=== PATIENT | female | born 1970 | race Caucasian/White ===

== ENCOUNTER → 2017-12-19 08:14 | Outpatient (CLI) | payer BC, SELFPAY ==
--- NOTE | 2017-12-19 08:30 | US_ITS ---
US transvaginal HISTORY: ITS.REASON: RLQ PAIN ORDERING PHYSICIAN: Delfino Bravo MD PATIENT AGE: 47 years FINDINGS: The uterus is 10 x 5 x 6 cm with a combined endometrial thickness of 14 mm. Uterus is retroverted. There is a 4.8 x 3.4 by 2.7 cm area of decreased echogenicity along the uterine fundus consistent with a fibroid. An additional fibroid along the right aspect of the uterus measures 4.9 x 3.4 x 3.7 cm. The right ovary is 2.5 x 1.4 cm and the left ovary is 3 x 2.6 cm. No adnexal mass evident. No cul-de-sac fluid. IMPRESSION: 1. Thickened endometrium. 2. 2 uterine fibroids
--- NOTE | 2017-12-19 08:30 | US_ITS ---
US abdomen limited: HISTORY: Right-sided abdominal pain, loss of appetite with nausea and bloating. ITS.REASON: RUQ PAIN ORDERING PHYSICIAN: Delfino Bravo MD PATIENT AGE: 47 years COMPARISON: FINDINGS: PANCREAS: Unremarkable. No obvious mass or abnormal fluid collection. No ductal dilatation LIVER: No focal liver lesions demonstrated. Homogeneous echogenicity. No intrahepatic biliary ductal dilatation evident. There is increased echogenicity of the liver suggesting hepatic steatosis RIGHT KIDNEY: Unremarkable. Normal size and echogenicity. No hydronephrosis GALLBLADDER: No gallstones, gallbladder wall thickening, pericholecystic fluid, or biliary dilatation. IMPRESSION: 1. Fatty liver. 2. Otherwise negative right upper quadrant ultrasound
== END ==
PROVIDERS: PCP Family Medicine; Visit Provider Family Medicine
DX: R10.31 Right lower quadrant pain (principal); R10.11 Right upper quadrant pain
CPT/HCPCS: 76705; 76830

== ENCOUNTER → 2018-01-01 10:10 | Outpatient (CLI) | payer BC, SELFPAY ==
--- NOTE | 2018-01-01 10:14 | NM_ITS ---
NM hepatobiliary wo pharm HISTORY: ITS.REASON: RUQ PAIN ORDERING PHYSICIAN: Delfino Bravo MD PATIENT AGE: 47 years COMPARISON: None DOSE: 8.64 MCI Choletec Inj into RT ANT Fatty Meal Ensure FINDINGS: Decreased activity is present over the superior aspect of the liver likely due to chest wall attenuation on both the right and left Activity is present in the gallbladder by 50 minutes. Activity is present in the small bowel by 15 minutes. The gallbladder ejection fraction is calculated to be 92% The patient did not report pain or other symptoms during the fatty meal. IMPRESSION: 1. No evidence of common or cystic duct obstruction. 2. There is mild delay in visualization of the gallbladder seen x 50 m which may be seen with chronic inflammatory changes of the cystic duct. 3. Normal gallbladder ejection fraction
== END ==
PROVIDERS: PCP Family Medicine; Visit Provider Family Medicine
DX: R10.11 Right upper quadrant pain (principal)
CPT/HCPCS: 78226; A9537

== ENCOUNTER → 2018-02-04 13:39 | Outpatient (POV) | payer BC, SELFPAY ==
[2018-02-04 14:58] LABS: INR 1.06 (0.9-1.1); Prothrombin Time 10.9 seconds (9.4-11.8)
[2018-02-04 15:02] LABS: Basophils % 0.5 % (0.1-2.0); Eosinophils # 0.2 K/mm3 (0.0-0.4); Eosinophils % 2.3 % (0.1-12.0); Lymphocytes # 1.6 K/mm3 (0.7-4.5); Lymphocytes % 19.1 K/mm3 (10-50); Mean Corpuscular HGB Conc 29.9 g/dL (31.8-35.4); Mean Corpuscular Hemoglobin 26.7 pg (27.0-31.2); Mean Corpuscular Volume 89.4 fl (81-99); Mean Platelet Volume 10.4 fl (7.4-10.4); Monocytes # 0.7 K/mm3 (0.1-1.0); Monocytes % 8.8 % (1.7-9.3); Neutrophils # 5.7 K/mm3 (1.8-7.8); Neutrophils % 69.2 % (37.0-80.0); Red Blood Count 4.48 M/mm3 (4.20-5.40); Red Cell Distribution Width 16.9 % (11.5-17.5); White Blood Count 8.3 K/mm3 (4.8-10.8)
[2018-02-04 15:34] LABS: Platelet Count 31 K/mm3 (142-424)
[2018-02-04 18:48] LABS: Alanine Aminotransferase 59 U/L (12-78); Albumin Level 3.2 gm/dL (3.4-5.0); Albumin/Globulin Ratio 0.8 (1.1-1.8); Alkaline Phosphatase 128 U/L (46-116); Amylase 46 U/L (25-125); Anion Gap 14.1 mEq/L (5-15); Aspartate Amino Transferase 106 U/L (15-37); Bilirubin,Total 0.4 mg/dL (0.2-1.0); Blood Urea Nitrogen 7 mg/dL (7-18); Calcium 7.7 mg/dL (8.5-10.1); Carbon Dioxide 25 mmol/L (21.0-32.0); Chloride 105 mmol/L (98-107); Creatinine,Serum 0.55 mg/dL (0.55-1.02); Estimated Glomerular Filt Rate 118 ml/min (>60); Ferritin 29 ng/mL (8-388); GFR (African American) 143 ML/MIN (>60); Globulin 4.2 gm/dl (1.3-3.2); Glucose 123 mg/dL (74-106); Lipase 262 u/L (73-393); Potassium 4.1 mmoL/L (3.5-5.1); Sodium 140 mmol/L (136-145); Total Protein,Serum 7.4 gm/dL (6.4-8.2)
[2018-02-06 09:22] LABS: Iron 32 ug/dL (27-159); UIBC 414 ug/dL (131-425)
[2018-02-06 10:14] LABS: Alpha-1-Antitrypsin 180 mg/dL (90-200); Immunoglobulin A, Qn 477 mg/dL (87-352); Immunoglobulin G, Qn 1460 mg/dL (700-1600)
[2018-02-06 11:18] LABS: Hep A Ab, IgM Negative (Negative); Hep B Core Ab, Total Negative (Negative); Hepatitis B Core Antibody IgM Negative (Negative); Hepatitis B Surface Antigen Negative (Negative)
[2018-02-07 08:03] LABS: Actin (Smooth Muscle) Antibody 21 Units (0-19); Angiotensin Converting Enzyme 59 U/L (14-82); Antinuclear Antibodies, IFA Positive (.); Deamidated Gliadin Abs, IgA 45 units (0-19); Deamidated Gliadin Abs, IgG >150 units (0-19); Endomysial IgA Antibody Positive (Negative); Hep A Ab, Total Negative (Negative); Hep B Surface Ab, Qual Non Reactive (.); Hepatitis C Antibody <0.1 s/co ratio (0.0-0.9); Immunoglobulin M, Qn 97 mg/dL (26-217); Iron Saturation 7 % (15-55); Liver-Kidney Microsomal Ab 1.4 Units (0.0-20.0); Mitochondrial (M2) Antibody <20.0 Units (0.0-20.0); Tissue Transglutaminase IgA Ab >100 U/mL (0-3); Tissue Transglutaminase IgG Ab 69 U/mL (0-5)
[2018-02-08 13:14] LABS: ALT (SGPT) P5P 50 IU/L (0-40); Alpha 2-Macroglobulins, Qn 328 mg/dL (110-276); Apolipoprotein A-1 79 mg/dL (116-209); Bilirubin, Total 0.3 mg/dL (0.0-1.2); Fibrosis Score 0.67 (0.00-0.21); GGT 231 IU/L (0-60); Haptoglobin 119 mg/dL (34-200); Necroinflammat Activity Grade A1-A2 (.); Necroinflammat Activity Score 0.42 (0.00-0.17)
[2018-02-08 15:36] LABS: Reticulin IgA Antibody Negative titer (Neg:<1:2.5)
== END ==
PROVIDERS: PCP Family Medicine; Visit Provider Nurse Practitioner Acute Care
DX: R94.5 Abnormal results of liver function studies (principal)
CPT/HCPCS: 36415; 80053; 80074; 82103; 82104; 82150; 82164; 82728; 82784; 83516; 83540; 83550; 83690; 85025; 85610; 86038; 86255; 86256; 86376; 86704; 86706; 86708

== ENCOUNTER 2018-09-16 13:06 | Observation (INO) ==
--- NOTE | 2018-09-16 14:33 | History & Physical Report ---
*Admission Date: 09/16/18 <Megan Rodney - 09/16/18 14:33> *Chief complaint: Shortness of breath <Megan Rodney - 09/16/18 15:16> *History of present illness: Ms Ac is a 48 year old female with a history of celiac disease, gastritis, duodenitis, uterine fibroids, abnormal liver, and thrombocytopenia who presented to the office of A complaining of SOB at rest with worsening with any activity. She has been experiencing heavy menses with large clots since August 27, 2018. She was seen by her CRISIS WORKER MD, Dr. Canales, who performed a Pap smear. He started her on control pills. When her periods continue to be heavy and were worsening she contacted Dr. Canales who told her to take 3 of her control pills daily. After doing so she noted shortness of breath for the past [address] Parker moreira who instructed her to stop the control pills and to see her primary care physician. Thus she presented to our office for further evaluation. She reported some intermittent left upper chest discomfort but denied pain on deep inspiration. She became short of breath just with walking across the t[place] to the bathroom. She denied palpitations and leg edema. She also reported a periodic cough and thought she may have a fever. Shedid not have much of an appetite but denied nausea or vomiting. She just felt bloated she had a normal bowel movement today without any blood. Patient is known to have a low platelet count as low as 17,000. She has seen Dr. Malagon, distillery miller, who did not feel further investigation was needed unless her platelet count became less than 10,000. She is also been seen by Dr. Dougherty who performed an EGD and colonoscopy on 05/06/2018. He found evidence of celiac disease, dyspepsia, gastritis, duodenitis , and one polyp which he removed. She did have a transvaginal ultrasound in December 2017 which showed 2 large fibroids and a thickened endometrium. With exam in the office patient was noted to be short of breath after going to bathroom across the tadeo. CBC revealed a hemoglobin of 7.2 and hematocrit of 23.3, platelet count of 65,000, white blood cell count of 11,100. Case was discussed with Dr. Sharma and she was admitted to [facility] for further evaluation and treatment. She will have a CTA of the chest, labs, venous ultrasound of bilateral lower extremities, and transvaginal ultrasound. She will be given 2 units of packed red blood cells. <Mercedes Rodneyhy 09/16/18 15:16> [facility] History Medical History: Reports:: Gastroesophageal Reflux Disease(GERD) Denies:: Atherosclerotic Heart Disease, Cancer, Coronary Artery Disease, Diabetes Mellitus Type 1, Diabetes Mellitus Type 2, Hepatitis, Hyperlipidemia, Internal Pacemaker, Lung Disease, MRSA, Seizures <Rodney,Megan 09/16/18 15:16> Have you ever received a pneumonia vaccine?: No <Megan Rodney 09/16/18 14:33> Have you received a flu vaccine this season?: No <Megan Rodney 09/16/18 14:33> Other Medical History: Reports: Anemia, Arthritis. Denies: Hypothyroidism <Megan Rodney 09/16/18 15:16> Laterality Cases: Bilateral: Tonsillectomy (T&A) <Megan Rodney 09/16/18 15:16> Other Surgeries: Yes: . No: Pacemaker <RodneyMegan escobar 09/16/18 14:33> Amputation: No <Megan Rodney 09/16/18 14:33> Fractures: No <Megan Rodney 09/16/18 14:33> - *Social History Educational Level: Completed High School <Megan Rodney 09/16/18 14:33> Smoking Status: Former smoker <Megan Rodney 09/16/18 14:33> Alcohol Intake: never <Megan Rodney 09/16/18 14:33> Alcohol Intake Frequency:: 3 or more drinks per day <Megan Rodney 09/16/18 14:33> Occupational Status: employed <Megan Rodney 09/16/18 14:33> Housing: house <Megan Rodney 09/16/18 14:33> Household Members: spouse <Megan Rodney 09/16/18 14:33> Travel in the last 8 weeks: None <Megan Rodney 09/16/18 14:33> - Psychiatric History Expresses thoughts of harming self/others: None <Megan Rodney 09/16/18 14:33> Suicide Plan Description: No Plan <Rodney,[facility] 09/16/18 14:33> *Family Hx:: Diabetes, Heart Attack, Hyperlipidemia, Hypertension <[facility] 14:[facility]> Review of Systems - Constitutional Reports body ache(s), Reports fever(s), Reports headache(s), Reports lack of energy <Rodney,[facility] 09/16/18 15:16> - ENT Reports ear pain, Reports sore throat <[facility] 09/16/18 15:16> - *Cardiovascular Reports chest pain, Reports shortness of breath, Reports shortness of breath with activity, Reports lightheadedness, Denies foot swelling <[facility] 09/16/18 15:16> - *Respiratory Reports shortness of breath with activity, Reports pain with cough, Denies excessive phlegm production, Denies coughing up blood <[facility] 09/16/18 15:16> - *Gastrointestinal Reports belching, Reports bloating, Reports nausea, Denies abdominal pain, Denies change in bowel habits, Denies constipation, Denies loose stools, Denies vomiting blood, Denies bright, red blood in stools, Denies black, tarry stools, Denies vomiting <[facility] 09/16/18 15:16> - *Genitourinary Reports abnormal periods, Reports abnormal vaginal bleeding, Denies difficulty urinating, Denies blood in urine [facility]16[facility] - *Musculoskeletal Reports joint pain <[facility] 09/16/18 15:16> - *Neurologic Denies behavioral changes <[facility]/16[facility]16> - Psychiatric Reports behavioral changes <[facility]/16[facility] 15:16> Meds Home Medications Medication Instructions Recorded Confirmed Type Bifidobacterium Infantis [Align] 4 mg PO DAILY 04/29/18 09/16/18 History Calcium Polycarbophil [FiberCon 625 mg PO BID 04/29/18 09/16/18 History 625mg tablet] Cholecalciferol (Vitamin D3) [D3 2,000 unit PO DAILY 04/29/18 09/16/18 History Dots] Multivitamin [Multivitamins] 1 each PO DAILY 04/29/18 09/16/18 History Omeprazole [Omeprazole 20mg Tab] 20 mg PO DAILY 09/16/18 09/16/18 History <Ashish Sharma - 09/16/18 17:48> Allergies Allergy/AdvReac Type Severity Reaction Status Date / Time No Known Allergies Allergy Verified 06/27/18 15:16 <Ashish Sharma - 09/16/18 17:48> Exam Vital signs and Labs for Last 24 Hours: Temp Pulse Resp BP Pulse Ox 99.3 F 98 H 16 114/71 100 09/16/18 17:30 09/16/18 17:30 09/16/18 17:30 09/16/18 17:30 09/16/18 17:30 Laboratory Results - last 24 hr 09/16/18 14:20: WBC 10.2, RBC 2.53 L, Hgb 6.7 L*, Hct 22.0 L*, MCV 86.7, MCH 26.3 L, MCHC 30.4 L, RDW 18.9 H, Plt Count 86 L, MPV 10.0, Neut % (Auto) 68.0, Lymph % (Auto) 23.1, [place] % (Auto) 6.9, Eos % (Auto) 1.5, Baso % (Auto) 0.5, Neut # (Auto) 7.0, Lymph # (Auto) 2.4, [place] # (Auto) 0.7, Eos # (Auto) 0.2, Baso # (Auto) 0.1 09/16/18 14:20: Sodium 138, Potassium 3.8, Chloride 103, Carbon Dioxide 24, Anion Gap 14.8, BUN 8, Creatinine 0.69, Estimated Creat Clear 99, Estimated GFR 91, Est GFR ( Amer) 110, Glucose 105, Calcium 8.3 L, Total Bilirubin 0.3, AST 18, ALT 25, Alkaline Phosphatase 65, Total Protein 7.3, Albumin 3.1 L, Globulin 4.2 H, Albumin/Globulin Ratio 0.7 L, TSH 4.96 H 09/16/18 14:20: PT 9.8, INR 0.95, APTT 21.2 L, D-Dimer 215 09/16/18 14:20: Blood Type A Positive, Antibody Screen Negative, Crossmatch (G) See Detail 09/16/18 16:10: Blood Type Confirm A Positive <Ashish Sharma - 09/16/18 17:48> Temp Pulse Resp BP Pulse Ox 98.1 F 108 H 18 131/79 100 09/16/18 13:33 09/16/18 13:33 09/16/18 13:33 09/16/18 13:33 09/16/18 13:33 <Megan Rodney - 09/16/18 14:33> I & O for Last 24 hours: Intake & Output 09/14/18 09/15/18 09/16/18 09/17/18 11:59 11:59 11:59 11:59 Intake Total 0 / 0 Balance 0 / 0 Weight 138 lb <Ashish Sharma - 09/16/18 17:48> Intake & Output 09/14/18 09/15/18 09/16/18 09/17/18 11:59 11:59 11:59 11:59 Weight 138 lb <Megan Rodney 09/16/18 14:33> - Constitutional no acute distress <Megan Rodney 09/16/18 15:16> Comments: She appears not to feel well <Megan Rodney 09/16/18 15:16> - *Routine HEENT Exam Head: Present: normocephalic, atraumatic <Megan Rodney 09/16/18 15:16> Eye: Present: PERRL. Absent: conjunctival icterus, scleral injection <Megan Rodney 09/16/18 15:16> ENT: Present: mucous membranes moist, oropharynx clear <Megan Rodney 09/16/18 15:16> - *Routine Neck Exam Present: supple. Absent: carotid bruit, lymphadenopathy, thyromegaly <Megan Rodney 09/16/18 15:16> - *Routine Respiratory Exam Present: CTA bilaterally (Anteriorly and posteriorly) <Megan Rodney 09/16/18 15:16> - *Routine Cardiovascular Exam Present: RRR. Absent: murmur <Megan Rodney 09/16/18 15:16> - *Routine Abdominal Exam Present: soft, normoactive bowel sounds, tenderness (Diffusely and mildly), distended. Absent: organomegaly, mass <Megan Rodney 09/16/18 15:16> - *Routine Extremities Exam Absent: edema, full ROM, calf tenderness <Megan Rodney 09/16/18 15:16> - *Routine Neurological Exam Present: alert, oriented X3 <Megan Rodney 09/16/18 15:16> Assessment and Plan (1) Shortness of breath Current visit: Yes Status: Acute Category: Medical Code(s): R06.02 - Shortness of breath (2) Chest pain Current visit: Yes Status: Acute Category: Medical Code(s): R07.9 - Chest pain, unspecified (3) Menorrhagia Current visit: Yes Status: Acute Category: Medical Code(s): N92.0 - Excessive and frequent menstruation with regular cycle (4) Blood loss anemia Current visit: Yes Status: Acute Category: Medical Code(s): D50.0 - Iron deficiency anemia secondary to blood loss (chronic) (5) Thrombocytopenia Current visit: Yes Status: Chronic Category: Medical Code(s): D69.6 - Thrombocytopenia, unspecified (6) Celiac disease Current visit: Yes Status: Chronic Category: Medical Code(s): K90.0 - Celiac disease (7) Gastritis Current visit: Yes Status: Acute Category: Medical Code(s): K29.70 - Gastritis, unspecified, without bleeding (8) Abnormal liver ultrasound Current visit: Yes Status: Chronic Category: Medical Code(s): R93.2 - Abnormal findings on diagnostic imaging of liver and biliary tract <Megan Rodney 09/16/18 14:40> (1) Blood loss anemia Current visit: Yes Status: Acute Category: Medical Code(s): D50.0 - Iron deficiency anemia secondary to blood loss (chronic) (2) Menorrhagia Current visit: Yes Status: Acute Category: Medical Code(s): N92.0 - Excessive and frequent menstruation with regular cycle (3) Shortness of breath Current visit: Yes Status: Acute Category: Medical Code(s): R06.02 - Shortness of breath (4) Chest pain Current visit: Yes Status: Acute Category: Medical Code(s): R07.9 - Chest pain, unspecified (5) Thrombocytopenia Current visit: Yes Status: Chronic Category: Medical Code(s): D69.6 - Thrombocytopenia, unspecified (6) Celiac disease Current visit: Yes Status: Chronic Category: Medical Code(s): K90.0 - Celiac disease (7) Gastritis Current visit: Yes Status: Acute Category: Medical Code(s): K29.70 - Gastritis, unspecified, without bleeding (8) Abnormal liver ultrasound Current visit: Yes Status: Chronic Category: Medical Code(s): R93.2 - Abnormal findings on diagnostic imaging of liver and biliary tract <Ashish Sharma - 09/16/18 17:48> - Assessment and plan all Dx Assessment and Plan for all problems:: Patient seen and examined. Concur with assessment and plan as outlined above. <Ashish Sharma - 09/16/18 17:48> Patient has been admitted to acute care for further evaluation and treatment. Receive 2 units of packed red blood cells. She will have CTA of the chest, transvaginal ultrasound, venous Dopplers of both bilateral lower extremities, and laboratory work. Further treatment dependent on test results which are all pending at this time <Megan Rodney - 09/16/18 15:16>
[2018-09-16 14:52] LABS: Activated Partial Thrombo Time 21.2 seconds (23.6-34.0); INR 0.95 (0.9-1.1); Prothrombin Time 9.8 seconds (9.4-11.8)
[2018-09-16 15:04] LABS: Albumin Level 3.1 gm/dL (3.4-5.0); Albumin/Globulin Ratio 0.7 (1.1-1.8); Anion Gap 14.8 mEq/L (5-15); Bilirubin,Total 0.3 mg/dL (0.2-1.0); Calcium 8.3 mg/dL (8.5-10.1); Globulin 4.2 gm/dl (1.3-3.2); Potassium 3.8 mmoL/L (3.5-5.1); Thyroid Stimulating Hormone 4.96 uIU/ml (0.358-3.740); Total Protein,Serum 7.3 gm/dL (6.4-8.2)
[2018-09-16 15:33] LABS: Basophils # 0.1 K/mm3 (0-0.2); Basophils % 0.5 % (0.1-2.0); Eosinophils # 0.2 K/mm3 (0.0-0.4); Eosinophils % 1.5 % (0.1-12.0); Lymphocytes # 2.4 K/mm3 (0.7-4.5); Lymphocytes % 23.1 % (10-50); Mean Corpuscular HGB Conc 30.4 g/dL (31.8-35.4); Mean Corpuscular Hemoglobin 26.3 pg (27.0-31.2); Mean Corpuscular Volume 86.7 fl (81-99); Monocytes # 0.7 K/mm3 (0.1-1.0); Monocytes % 6.9 % (1.7-9.3); Platelet Count 86 K/mm3 (142-424); Red Blood Count 2.53 M/mm3 (4.20-5.40); Red Cell Distribution Width 18.9 % (11.5-17.5); White Blood Count 10.2 K/mm3 (4.8-10.8)
[2018-09-16 15:37] LABS: Hemoglobin 6.7 g/dL (12.2-16.2)
--- NOTE | 2018-09-16 15:55 | Non-Invasive Vascular Report ---
"Venous Exam Indications: 729.5 Pain in limb. IMPRESSIONS 1. There is no evidence of significant Reflux. 2. No evidence of deep or superficial vein thrombosis involving the right lower extremity and left lower extremity Complete lower extremity venous duplex evaluation. Doppler flow study including spectral analysis, color and daigle scale imaging. Location: Vascular laboratory. Patient status: Inpatient. Tables: Venous flow and imaging: + +-------+ + |Location |Overall|Flow properties | + +-------+ + |Right common femoral |Patent |Normal phasicity; spontaneous; | | | |normal augmentation; compressible| + +-------+ + |Right saphenofemoral junction|Patent |Compressible | + +-------+ + |Right profunda femoral |Patent |Compressible | + +-------+ + |Right femoral |Patent |Normal phasicity; spontaneous; | | | |normal augmentation; | | | |compressible; no reflux | + +-------+ + |Right greater saphenous |Patent |Normal phasicity; spontaneous; | | | |normal augmentation; compressible| + +-------+ + |Right popliteal |Patent |Normal phasicity; spontaneous; | | | |normal augmentation; compressible| + +-------+ + |Right posterior tibial |Patent |Compressible | + +-------+ + |Right peroneal |Patent |Compressible | + +-------+ + |Right gastrocnemius |Patent |Compressible | + +-------+ + |Right soleal |Patent |Compressible | + +-------+ + |Left common femoral |Patent |Normal phasicity; spontaneous; | | | |normal augmentation; compressible| + +-------+ + |Left saphenofemoral junction |Patent |Compressible | + +-------+ + |Left profunda femoral |Patent |Compressible | + +-------+ + |Left femoral |Patent |Normal phasicity; spontaneous; | | | |normal augmentation; compressible| + +-------+ + |Left greater saphenous |Patent |Normal phasicity; spontaneous; | | | |normal augmentation; compressible| + +-------+ + |Left popliteal |Patent |Normal phasicity; spontaneous; | | | |normal augmentation; compressible| + +-------+ + |Left posterior tibial |Patent |Compressible | + +-------+ + |Left peroneal |Patent |Compressible | + +-------+ + |Left gastrocnemius |Patent |Compressible | + +-------+ + |Left soleal |Patent |Compressible | + +-------+ + (Report amended ) Electronically signed by: Ashutosh Moss [id number]"
--- NOTE | 2018-09-16 16:14 | Pharmacy Consult Notes ---
[facility] Pharmacy VTE Monitoring - Patient Demographics Admission date: 09/16/18 Report Date: 09/16/18 Time: 16:14 Allergies/Adverse Reactions: Patient Allergies No Known Allergies Allergy (Verified 06/27/18 15:16) Height: 1.52 m Weight: 62.596 kg Patient Problems: Current Active Problems Shortness of breath (Acute) Chest pain (Acute) Menorrhagia (Acute) Blood loss anemia (Acute) Thrombocytopenia (Chronic) Celiac disease (Chronic) Gastritis (Acute) Abnormal liver ultrasound (Chronic) - VTE Risk Labs: VTE Related Lab Results Hgb 6.7 g/dL (12.2-16.2) L* 09/16/18 14:20 Hct 22.0 % (37.0-47.0) L* 09/16/18 14:20 Plt Count 86 K/mm3 (142-424) L 09/16/18 14:20 PT 9.8 seconds (9.4-11.8) 09/16/18 14:20 INR 0.95 (0.9-1.1) 09/16/18 14:20 APTT 21.2 seconds (23.6-34.0) L 09/16/18 14:20 BUN 8 mg/dL (7-18) 09/16/18 14:20 Creatinine 0.69 mg/dL (0.55-1.02) 09/16/18 14:20 Estimated Creat Clear 99 mL/min (50-200) 09/16/18 14:20 Was VTE Risk Assessment Performed: Yes VTE Score: 1 VTE Risk Level: Low Risk Clinical Trial Participant: No - Prophylaxis VTE Prophylaxis Ordered?: Yes Types of VTE Prophylaxis: TEDS Knee High
[2018-09-17 01:12] LABS: Hemoglobin 10.3 g/dL (12.2-16.2)
[2018-09-17 07:30] LABS: Microscopic, Urine URINE MICROSCOPIC (MICROSCOPIC)
[2018-09-17 07:33] LABS: Appearance,Urine CLEAR (Clear); Bilirubin,Urine Negative (Negative); Blood, Urine 2+ (Negative); Color,Urine YELLOW (Yellow); Glucose,Urine (UA) Negative (Negative); Ketones,Urine Negative (Negative); Leukocyte Esterase,Urine Negative (Negative); Protein,Urine Negative (Negative); Specific Gravity, Urine 1.015 (1.005-1.030); Urobilinogen,Urine 0.2 EU/dl (0.2)
[2018-09-17 07:41] LABS: Squamous Epithelial Cell,Urine Occasional #/hpf (0-5)
[2018-09-17 07:42] LABS: Bacteria,Urine Trace /lpf
[2018-09-17 07:58] LABS: Basophils # 0.1 K/mm3 (0-0.2); Basophils % 0.4 % (0.1-2.0); Eosinophils # 0.2 K/mm3 (0.0-0.4); Hematocrit 31.8 % (37.0-47.0); Hemoglobin 10.4 g/dL (12.2-16.2); Lymphocytes # 2.2 K/mm3 (0.7-4.5); Lymphocytes % 18.7 % (10-50); Mean Corpuscular HGB Conc 32.8 g/dL (31.8-35.4); Mean Corpuscular Volume 85.3 fl (81-99); Mean Platelet Volume 9.3 fl (7.4-10.4); Monocytes # 0.8 K/mm3 (0.1-1.0); Monocytes % 6.5 % (1.7-9.3); Neutrophils # 8.6 K/mm3 (1.8-7.8); Neutrophils % 72.3 % (37.0-80.0); Platelet Count 80 K/mm3 (142-424); Red Blood Count 3.73 M/mm3 (4.20-5.40); Red Cell Distribution Width 17.2 % (11.5-17.5); White Blood Count 11.9 K/mm3 (4.8-10.8)
--- NOTE | 2018-09-17 09:18 | Progress Note ---
<Megan Rodney - Last Filed: 09/17/18 09:15> Internal Medicine - PN: Subj *Date: 09/17/18 *Time: 09:15 Interval history: Patient states she feels better. She has had no further shortness of breath. She denies chest pain. She has been up to the bathroom without difficulty. Bowels have not moved. She has had some vaginal bleeding but no clots since admission. She is eating a little. Reviewed all test with her. She spoke with her MYSQL DATABASE DEVELOPER, Dr. Canales, this a.m. who referred her to another MYSQL DATABASE DEVELOPER for possible ablation. She is to call for consultation appointment. H&H are 10.4 and 31.8 this morning; platelet count is 80,000. Exam Vital signs and Labs for Last 24 Hours: Temp Pulse Resp BP Pulse Ox 98.4 F 88 18 122/73 97 09/17/18 08:00 09/17/18 08:00 09/17/18 08:00 09/17/18 08:00 09/17/18 08:40 Laboratory Results - last 24 hr 09/16/18 14:20: WBC 10.2, RBC 2.53 L, Hgb 6.7 L*, Hct 22.0 L*, MCV 86.7, MCH 26.3 L, MCHC 30.4 L, RDW 18.9 H, Plt Count 86 L, MPV 10.0, Neut % (Auto) 68.0, Lymph % (Auto) 23.1, Spink % (Auto) 6.9, Eos % (Auto) 1.5, Baso % (Auto) 0.5, Neut # (Auto) 7.0, Lymph # (Auto) 2.4, Spink # (Auto) 0.7, Eos # (Auto) 0.2, Baso # (Auto) 0.1 09/16/18 14:20: Sodium 138, Potassium 3.8, Chloride 103, Carbon Dioxide 24, Anion Gap 14.8, BUN 8, Creatinine 0.69, Estimated Creat Clear 99, Estimated GFR 91, Est GFR ( Amer) 110, Glucose 105, Calcium 8.3 L, Total Bilirubin 0.3, AST 18, ALT 25, Alkaline Phosphatase 65, Total Protein 7.3, Albumin 3.1 L, Globulin 4.2 H, Albumin/Globulin Ratio 0.7 L, TSH 4.96 H 09/16/18 14:20: PT 9.8, INR 0.95, APTT 21.2 L, D-Dimer 215 09/16/18 14:20: Blood Type A Positive, Antibody Screen Negative, Crossmatch (AHG) See Detail 09/16/18 16:10: Blood Type Confirm A Positive 09/17/18 00:45: Hgb 10.3 L D, Hct 31.0 L 09/17/18 07:18: Urine Color Yellow, Urine Appearance Clear, Urine pH 6.0, Ur Specific [place] 1.015, Urine Protein Negative, Urine Glucose (UA) Negative, Uri ne Ketones Negative, Urine Blood 2+, Urine Nitrate Negative, Urine Bilirubin Negative, Urine Urobilinogen 0.2, Ur Leukocyte Esterase Negative, Urine RBC 3-5, Urine WBC None, Ur Squamous Epith Cells Occasional, Urine Bacteria Trace 09/17/18 07:20: WBC 11.9 H, RBC 3.73 L D, Hgb 10.4 L, Hct 31.8 L, MCV 85.3, MCH 28.0, MCHC 32.8, RDW 17.2, Plt Count 80 L, MPV 9.3, Neut % (Auto) 72.3, Lymph % (Auto) 18.7, Spink % (Auto) 6.5, Eos % (Auto) 2.0, Baso % (Auto) 0.4, Neut # (Auto) 8.6 H, Lymph # (Auto) 2.2, Spink # (Auto) 0.8, Eos # (Auto) 0.2, Baso # (Auto) 0.1 I & O for Last 24 hours: Intake & Output 09/14/18 09/15/18 09/16/18 09/17/18 11:59 11:59 11:59 11:59 Intake Total 942 / 942 Output Total 400 / 400 Balance 542 / 542 Weight 138 lb Radiology Reports for the Last 24 Hours: 09/16/2018 CTA of the chest IMPRESSION: No acute finding. No evidence of pulmonary embolus. 09/16/2018 transvaginal ultrasound IMPRESSION: ======== Enlarged uterus. Retroflexed. Prominent thickened endometrium with probable generous clot at superior endometrium. Fibroid at fundus of uterus measuring 2.3 AP x up to likely 4 cm wide. (: As noted on 2018 ultrasound as well). . fullness at the right aspect endometrial stripe either reflecting additional clot here or a second fibroid measuring 2 3 cm. 09/16/2018 bilateral lower extremity venous Doppler studies IMPRESSIONS 1. There is no evidence of significant Reflux. 2. No evidence of deep or superficial vein thrombosis involving the right lower extremity and left lower extremity Complete lower extremity venous duplex evaluation. Doppler flow study including spectral analysis, color and daigle scale imaging. Location: Vascular laboratory. Patient status: Inpatient. - Constitutional no acute distress Comments: Awake and alert and appears comfortable - *Routine Respiratory Exam Present: CTA bilaterally - *Routine Cardiovascular Exam Present: RRR - *Routine Abdominal Exam Present: soft, normoactive bowel sounds. Absent: tenderness, distended - *Routine Extremities Exam Absent: edema, calf tenderness - *Routine Neurological Exam Present: alert, oriented X3 Assessment and Plan (1) Blood loss anemia Current visit: Yes Status: Acute Category: Medical Code(s): D50.0 - Iron deficiency anemia secondary to blood loss (chronic) (2) Menorrhagia Current visit: Yes Status: Acute Category: Medical Code(s): N92.0 - Excessive and frequent menstruation with regular cycle (3) Shortness of breath Current visit: Yes Status: Acute Category: Medical Code(s): R06.02 - Shortness of breath (4) Chest pain Current visit: Yes Status: Acute Category: Medical Code(s): R07.9 - Chest pain, unspecified (5) Thrombocytopenia Current visit: Yes Status: Chronic Category: Medical Code(s): D69.6 - Thrombocytopenia, unspecified (6) Celiac disease Current visit: Yes Status: Chronic Category: Medical Code(s): K90.0 - Celiac disease (7) Gastritis Current visit: Yes Status: Acute Category: Medical Code(s): K29.70 - Gastritis, unspecified, without bleeding (8) Abnormal liver ultrasound Current visit: Yes Status: Chronic Category: Medical Code(s): R93.2 - Abnormal findings on diagnostic imaging of liver and biliary tract - Assessment and plan all Dx Assessment and Plan for all problems:: Patient agrees for consult with Dr. Page. Copies of all ultrasound and tests given to patient. <Ashish Sharma - Last Filed: 09/17/18 18:19> Exam Vital signs and Labs for Last 24 Hours: Temp Pulse Resp BP Pulse Ox 97.7 F 79 18 133/79 95 09/17/18 16:00 09/17/18 16:00 09/17/18 16:00 09/17/18 16:00 09/17/18 16:00 Laboratory Results - last 24 hr 09/16/18 14:20: Blood Type A Positive, Antibody Screen Negative, Crossmatch (AHG) See Detail 09/17/18 00:45: Hgb 10.3 L D, Hct 31.0 L 09/17/18 07:18: Urine Color Yellow, Urine Appearance Clear, Urine pH 6.0, Ur Specific [place] 1.015, Urine Protein Negative, Urine Glucose (UA) Negative, Urine Ketones Negative, Urine Blood 2+, Urine Nitrate Negative, Urine Bilirubin Negative, Urine Urobilinogen 0.2, Ur Leukocyte Esterase Negative, Urine RBC 3-5, Urine WBC None, Ur Squamous Epith Cells Occasional, Urine Bacteria Trace 09/17/18 07:20: WBC 11.9 H, RBC 3.73 L D, Hgb 10.4 L, Hct 31.8 L, MCV 85.3, MCH 28.0, MCHC 32.8, RDW 17.2, Plt Count 80 L, MPV 9.3, Neut % (Auto) 72.3, Lymph % (Auto) 18.7, Spink % (Auto) 6.5, Eos % (Auto) 2.0, Baso % (Auto) 0.4, Neut # (Auto) 8.6 H, Lymph # (Auto) 2.2, Spink # (Auto) 0.8, Eos # (Auto) 0.2, Baso # (Auto) 0.1 I & O for Last 24 hours: Intake & Output 09/15/18 09/16/18 09/17/18 09/18/18 11:59 11:59 11:59 11:59 Intake Total 942 / 942 480 / 480 Output Total 400 / 400 Balance 542 / 542 480 / 480 Weight 138 lb Assessment and Plan (1) Blood loss anemia Current visit: Yes Status: Acute Category: Medical Code(s): D50.0 - Iron deficiency anemia secondary to blood loss (chronic) (2) Menorrhagia Current visit: Yes Status: Acute Category: Medical Code(s): N92.0 - Excessive and frequent menstruation with regular cycle (3) Shortness of breath Current visit: Yes Status: Acute Category: Medical Code(s): R06.02 - Shortness of breath (4) Chest pain Current visit: Yes Status: Acute Category: Medical Code(s): R07.9 - Chest pain, unspecified (5) Thrombocytopenia Current visit: Yes Status: Chronic Category: Medical Code(s): D69.6 - Thrombocytopenia, unspecified (6) Celiac disease Current visit: Yes Status: Chronic Category: Medical Code(s): K90.0 - Celiac disease (7) Gastritis Current visit: Yes Status: Acute Category: Medical Code(s): K29.70 - Gastritis, unspecified, without bleeding (8) Abnormal liver ultrasound Current visit: Yes Status: Chronic Category: Medical Code(s): R93.2 - Abnormal findings on diagnostic imaging of liver and biliary tract - Assessment and plan all Dx Assessment and Plan for all problems:: Patient seen and examined. Subjectively feels better. Concur with plan for MYSQL DATABASE DEVELOPER consult.
--- NOTE | 2018-09-17 16:58 | Consult Report ---
CULLET TRUCKER - CN: HPI - Data of Consult Patient: new to practice Consult date: 09/17/18 Requesting Physician: Ashish Sharma MD Primary Care Provider: Ashish Sharma MD - Consult Narrative Reason for consult: vaginal bleeding History of present illness: Ms. Ac is a 48 year old female who has had extremely heavy bleeding. She was seen in Dr. Sharma's office and was feeling quite lightheaded. Her hemoglobin was found to be 6.7. She is also known to be thrombocytopenic as well. She has received 2 units of blood and her hemoglobin is now 10.1. She feels better. He had an ultrasound that showed at least 2 fibroids the largest of which is about 4 cm. As well within the endometrial cavity it seem to be distended with clot. CC: Ashish Sharma MD Heavy vaginal bleeding fibroid uterus, thrombocytopenia, anemia Review of Systems - Review of Systems Review of systems:: pertinent systems reviewed and negative unless documented below - *Neurologic Reports behavioral changes, Reports headache(s) H History I have reviewed the patient's past medical history: Yes Medical History: Reports:: Gastroesophageal Reflux Disease(GERD) Denies:: Atherosclerotic Heart Disease, Cancer, Coronary Artery Disease, Diabetes Mellitus Type 1, Diabetes Mellitus Type 2, Hepatitis, Hyperlipidemia, Internal Pacemaker, Lung Disease, MRSA, Seizures Have you ever received a pneumonia vaccine?: No Have you received a flu vaccine this season?: No Other Medical History: Reports: Anemia, Arthritis. Denies: Hypothyroidism Laterality Cases: Bilateral: Tonsillectomy (T&A) Other Surgeries: Yes: . No: Pacemaker Amputation: No Fractures: No - *Social History Educational Level: Completed High School Smoking Status: Former smoker Alcohol Intake: never Alcohol Intake Frequency:: 3 or more drinks per day Occupational Status: employed Housing: house Household Members: spouse Travel in the last 8 weeks: None - Psychiatric History Expresses thoughts of harming self/others: None Suicide Plan Description: No Plan *Family Hx:: Diabetes, Heart Attack, Hyperlipidemia, Hypertension Meds Home Medications Medication Instructions Recorded Confirmed Type Bifidobacterium Infantis [Align] 4 mg PO DAILY 04/29/18 09/16/18 History Calcium Polycarbophil [FiberCon 625 mg PO BID 04/29/18 09/16/18 History 625mg tablet] Cholecalciferol (Vitamin D3) [D3 2,000 unit PO DAILY 04/29/18 09/16/18 History Dots] Multivitamin [Multivitamins] 1 each PO DAILY 04/29/18 09/16/18 History Omeprazole [Omeprazole 20mg Tab] 20 mg PO DAILY 09/16/18 09/16/18 History Ferrous Sulfate [Ferrous Sulfate 325 mg PO DAILY 09/17/18 09/17/18 History 325mg Tablet] Allergies Allergy/AdvReac Type Severity Reaction Status Date / Time No Known Allergies Allergy Verified 09/16/18 22:31 CULLET TRUCKER - Exam Vital signs: Temp Pulse Resp BP Pulse Ox 98.4 F 88 18 122/73 97 09/17/18 08:00 09/17/18 08:00 09/17/18 08:00 09/17/18 08:00 09/17/18 08:40 - Constitutional no acute distress - Routine HEENT Exam Head: Present: normocephalic Eye: Present: EOMI, PERRL ENT: Present: mucous membranes moist - Routine Respiratory Exam Absent: accessory muscle use (good air entry bilaterally), wheezes, crackles CULLET TRUCKER - Results - Labs CBC & Chem 7: 09/17/18 07:20 09/16/18 14:20 Labs: Short CBC 09/17/18 09/17/18 Range/Units 00:45 07:20 WBC 11.9 H (4.8-10.8) K/mm3 Hgb 10.3 L D 10.4 L (12.2-16.2) g/dL Hct 31.0 L 31.8 L (37.0-47.0) % Plt Count 80 L (142-424) K/mm3 Urine 09/17/18 Range/Units 07:18 Urine Color Yellow (Yellow) Urine Appearance Clear (Clear) Urine pH 6.0 (5.0-8.5) Ur Specific [place] 1.015 (1.005-1.030) Urine Protein Negative (Negative) Urine Glucose (UA) Negative (Negative) Assessment and Plan (1) Blood loss anemia Current visit: Yes Status: Acute Category: Medical Code(s): D50.0 - Iron deficiency anemia secondary to blood loss (chronic) (2) Menorrhagia Current visit: Yes Status: Acute Category: Medical Code(s): N92.0 - Excessive and frequent menstruation with regular cycle (3) Shortness of breath Current visit: Yes Status: Acute Category: Medical Code(s): R06.02 - Shortness of breath (4) Chest pain Current visit: Yes Status: Acute Category: Medical Code(s): R07.9 - Chest pain, unspecified (5) Thrombocytopenia Current visit: Yes Status: Chronic Category: Medical Code(s): D69.6 - Thrombocytopenia, unspecified (6) Celiac disease Current visit: Yes Status: Chronic Category: Medical Code(s): K90.0 - Celiac disease (7) Gastritis Current visit: Yes Status: Acute Category: Medical Code(s): K29.70 - Gastritis, unspecified, without bleeding (8) Abnormal liver ultrasound Current visit: Yes Status: Chronic Category: Medical Code(s): R93.2 - Abnormal findings on diagnostic imaging of liver and biliary tract - Assessment and plan all Dx Assessment and Plan for all problems:: She has severe menorrhagia with anemia. She has at least 2 fibroids within the uterus. The largest of which is 4 cm. She did have some clot within the endometrial cavity and this is what made it look like it was thickened. She has thrombocytopenia that has resolved. Her most recent platelet count was 80. We had a long discussion today and I believe that she would be a good candidate for laparoscopically assisted vaginal hysterectomy and bilateral salpingectomy. Given the fact that she has fibroids I do not think that she would be a good candidate at this time for an endometrial ablation. She will follow-up with me in a week's time in the office and I will repeat her ultrasound. We will consider an endometrial biopsy at that time as well to rule out any intra-uterine pathology. We will then schedule her for a hysterectomy in a few weeks time. She asked me if she could have her hysterectomy while she was hospitalized and I told her that I would like her to recover somewhat before we do major surgery.
--- NOTE | 2018-09-18 17:19 | Discharge Summary ---
General - General Admission date:: 09/16/18 <Ashish Sharma - 09/25/18 11:48> 09/16/18 <Sharita López - 09/20/18 10:48> Discharge date: 09/17/18 <MaribelSharita - 09/18/18 17:19> HPI HPI: Ms Ac is a 48 year old female with a history of celiac disease, gastritis, duodenitis, uterine fibroids, abnormal liver enzymes , and thrombocytopenia who presented to the office of [facility] complaining of SOB at rest with worsening with any activity. She has been experiencing heavy menses with large clots since August 27, 2018. She was seen by her PRIVATE CHEF MD, Dr. Canales, who performed a Pap smear. He started her on control pills. When her periods continued to be heavy and were worsening she contacted Dr. Canales who told her to take 3 of her control pills daily. After doing so she noted shortness of breath for the past [address] Canales again and he instructed her to stop the control pills and to see her primary care physician. Thus she presented to our office for further evaluation. She reported some intermittent left upper chest discomfort but denied pain on deep inspiration. She became short of breath just with walking across the tadeo to the bathroom. She denied palpitations and leg edema. She also reported a periodic cough and thought she may have a fever. Shedid not have much of an appetite but denied nausea or vomiting. She just felt bloated she had a normal bowel movement today without any blood. Patient is known to have a low platelet count as low as 17,000. She has seen Dr. Malagon, business solutions consultant, who did not feel further investigation was needed unless her platelet count became less than 10,000. She has also been seen by Dr. Dougherty who performed an EGD and colonoscopy on 05/06/2018. He found evidence of celiac disease, dyspepsia, gastritis, duodenitis , and one polyp which he removed. She did have a transvaginal ultrasound in December 2017 which showed 2 large fibroids and a thickened endometrium. With exam in the office patient was noted to be short of breath after going to bathroom across the tadeo. CBC revealed a hemoglobin of 7.2 and hematocrit of 23.3, platelet count of 65,000, white blood cell count of 11,100. Case was discussed with Dr. Sharma and she was [facility] and treatment. She will have a CTA of the chest, labs, venous ultrasound of bilateral lower extremities, and transvaginal ultrasound. She will be given 2 units of packed red blood cells. <Sharita López - 09/20/18 10:48> Hospital Course Hospital Course: The patient's CTA and venous dopplers were negative for blood clots. Her H&H upon presentation to the hospital was 6.7 and 22.0. This improved to 10.3 and 31 with blood transfusion. By the next day her hemoglobin was staying stable at 10.4 and her hematocrit was 31.8. Her PLT count had increased as well. Her TSH was slightly elevated but her electrolytes were normal. The patient felt much better after receiving blood. She had no further shortness of breath or chest pain. She was able to move around her room without difficulty. She was still having some vaginal bleeding but no clotting. She did call her PRIVATE CHEF Dr. Canales while in the hospital and he referred her to another PRIVATE CHEF for possible ablation. Patient preferred to see Dr. Page while in the hospital, therefore he was consulted. She had a transvaginal ultrasound done which showed an enlarged uterus with prominent thickened endometrium and a probable generous clot at the superior endometrium. There was a fibroid at the fundus of the uterus measuring 2.3 by up to likely 4 cm wide and there was also fullness of the right aspect of the endometrial stripe either reflecting an additional clot or a second fibroid. Dr. Page saw her and felt she had at least 2 fibroids within the uterus along with clotting. Her thrombocytopenia had improved and he had a long discussion with her about the fact that she would be a good candidate for laparoscopically assisted vaginal hysterectomy and bilateral salpingectomy. He did not feel she would be a good candidate for endometrial ablation due to her fibroids. The patient wished to follow-up with Dr. Page in his office in a week for repeat ultrasound and a possible endometrial biopsy to rule out any intrauterine pathology. He then felt he would schedule hysterectomy a few weeks later. The patient was stable to be discharged home and will follow up with Dr. Page in his office. <Sharita López - 09/20/18 10:48> Objective Vital signs: Temp Pulse Resp BP Pulse Ox 97.7 F 79 18 133/79 95 09/17/18 16:00 09/17/18 16:00 09/17/18 16:00 09/17/18 16:00 09/17/18 16:00 <EdithAshish tai - 09/25/18 11:48> Temp Pulse Resp BP Pulse Ox 97.7 F 79 18 133/79 95 09/17/18 16:00 09/17/18 16:00 09/17/18 16:00 09/17/18 16:00 09/17/18 16:00 <Sharita López - 09/18/18 17:19> Narrative: - Constitutional no acute distress Comments: She appears not to feel well - *Routine HEENT Exam Head: Present: normocephalic, atraumatic Eye: Present: PERRL. Absent: conjunctival icterus, scleral injection ENT: Present: mucous membranes moist, oropharynx clear - *Routine Neck Exam Present: supple. Absent: carotid bruit, lymphadenopathy, thyromegaly - *Routine Respiratory Exam Present: CTA bilaterally (Anteriorly and posteriorly) - *Routine Cardiovascular Exam Present: RRR. Absent: murmur - *Routine Abdominal Exam Present: soft, normoactive bowel sounds, tenderness (Diffusely and mildly), distended. Absent: organomegaly, mass - *Routine Extremities Exam Absent: edema, full ROM, calf tenderness - *Routine Neurological Exam Present: alert, oriented X3 <Sharita López - 09/20/18 10:48> DS: Diagnosis - Discharge Diagnosis (1) Blood loss anemia Status: Acute (2) Menorrhagia Status: Acute (3) Shortness of breath Status: Acute (4) Chest pain Status: Acute (5) Thrombocytopenia Status: Chronic (6) Celiac disease Status: Chronic (7) Gastritis Status: Acute (8) Abnormal liver ultrasound Status: Chronic <Livan Lópeza - 09/20/18 10:26> (1) Blood loss anemia Status: Acute (2) Menorrhagia Status: Acute (3) Shortness of breath Status: Acute (4) Chest pain Status: Acute (5) Thrombocytopenia Status: Chronic (6) Celiac disease Status: Chronic (7) Gastritis Status: Acute (8) Abnormal liver ultrasound Status: Chronic <Ashish Sharma Alec - 09/25/18 11:48> Discharge Plan - Patient Discharge Instructions ACTIVITY: Continue current activity <Sharita López - 09/18/18 17:19> DIET: continue same diet <Livan Lópeza - 09/18/18 17:19> Patient Instructions: Anemia, DI for Uterine Fibroids <Ashish Sharma - 09/25/18 11:48> Forms: <Ashish Sharma - 09/25/18 11:48> - Follow up Plan Follow up with: Justice Parra MD [Staff Physician] - 1 week <EdithAshish - 09/25/18 11:48> Disposition: Home, Self-Care <Ashish Sharma - 09/25/18 11:48> Home Medications: Home Medications Medication Instructions Recorded Confirmed Type RX: Bifidobacterium Infantis 4 mg PO DAILY 04/29/18 09/25/18 History [Align] RX: Calcium Polycarbophil 625 mg PO BID 04/29/18 09/25/18 History [FiberCon 625mg tablet] RX: Cholecalciferol (Vitamin D3) 2,000 unit PO DAILY 04/29/18 09/25/18 History [D3 Dots] RX: Multivitamin [Multivitamins] 1 each PO DAILY 04/29/18 09/25/18 History RX: Omeprazole [Omeprazole 20mg 20 mg PO DAILY 09/16/18 09/25/18 History Tab] RX: Ferrous Sulfate [Ferrous 325 mg PO DAILY 09/17/18 09/25/18 History Sulfate 325mg Tablet] <Ashish Sharma - 09/25/18 11:48> Prescriptions/Medication Reconciliation: Continue RX: Multivitamin [Multivitamins] 1 each PO DAILY RX: Cholecalciferol (Vitamin D3) [D3 Dots] 2,000 unit PO DAILY RX: Calcium Polycarbophil [FiberCon 625mg tablet] 625 mg PO BID RX: Bifidobacterium Infantis [Align] 4 mg PO DAILY RX: Omeprazole [Omeprazole 20mg Tab] 20 mg PO DAILY RX: Ferrous Sulfate [Ferrous Sulfate 325mg Tablet] 325 mg PO DAILY <Ashish Sharma - 09/25/18 11:48> - Additional Information Additional Information: Concur with above plan for discharge. <EdithAshish tai - 09/25/18 11:48>
== END 2018-09-17 18:55 | disposition home or self-care (01) ==
LOC: 2ND
PROVIDERS: ADMIT Family Medicine; ATTEND Family Medicine
CPT/HCPCS: 36415; 71275; 76830; 80053; 81001; 84443; 85014; 85018; 85025; 85378; 85610; 85730; 86850; 93970; G0378; P9016

== ENCOUNTER → 2018-10-02 09:40 | Outpatient (CLI) | payer BC, SELFPAY ==
[2018-10-02 10:04] LABS: Basophils # 0.1 K/mm3 (0-0.2); Basophils % 0.5 % (0.1-2.0); Eosinophils # 0.1 K/mm3 (0.0-0.4); Eosinophils % 1.4 % (0.1-12.0); Hematocrit 41.2 % (37.0-47.0); Hemoglobin 13.3 g/dL (12.2-16.2); Lymphocytes # 2.3 K/mm3 (0.7-4.5); Lymphocytes % 23.2 % (10-50); Mean Corpuscular HGB Conc 32.4 g/dL (31.8-35.4); Mean Corpuscular Hemoglobin 28.2 pg (27.0-31.2); Mean Platelet Volume 7.8 fl (7.4-10.4); Monocytes # 0.5 K/mm3 (0.1-1.0); Monocytes % 5.5 % (1.7-9.3); Neutrophils # 6.8 K/mm3 (1.8-7.8); Neutrophils % 69.4 % (37.0-80.0); Platelet Count 106 K/mm3 (142-424); Red Blood Count 4.74 M/mm3 (4.20-5.40); Red Cell Distribution Width 15.4 % (11.5-17.5); White Blood Count 9.8 K/mm3 (4.8-10.8)
[2018-10-02 10:38] LABS: Anion Gap 13.5 mEq/L (5-15); Blood Urea Nitrogen 10 mg/dL (7-18); Calcium 8.4 mg/dL (8.5-10.1); Carbon Dioxide 27 mmol/L (21.0-32.0); Chloride 105 mmol/L (98-107); Creatinine,Serum 0.76 mg/dL (0.55-1.02); Estimated Glomerular Filt Rate 81 ml/min (>60); GFR (African American) 98 ML/MIN (>60); Glucose 91 mg/dL (74-106); Potassium 4.5 mmoL/L (3.5-5.1); Sodium 141 mmol/L (136-145)
[2018-10-02 12:19] LABS: HCG Qualitative, Serum Negative (Negative)
== END ==
PROVIDERS: Visit Provider Nurse Practitioner Obstetrics & Gynecology
DX: Z01.818 Encounter for other preprocedural examination (principal); D64.9 Anemia, unspecified
CPT/HCPCS: 36415; 80048; 84703; 85025; 86850

== ENCOUNTER → 2018-11-16 08:00 | Outpatient (CLI) | payer BC, SELFPAY ==
[2018-11-16 09:00] LABS: Basophils # 0.1 K/mm3 (0-0.2); Basophils % 0.5 % (0.1-2.0); Eosinophils # 0.4 K/mm3 (0.0-0.4); Eosinophils % 3.5 % (0.1-12.0); Hematocrit 36.2 % (37.0-47.0); Hemoglobin 11.8 g/dL (12.2-16.2); Lymphocytes # 2.6 K/mm3 (0.7-4.5); Mean Corpuscular HGB Conc 32.5 g/dL (31.8-35.4); Mean Corpuscular Hemoglobin 29.8 pg (27.0-31.2); Mean Corpuscular Volume 91.9 fl (81-99); Monocytes # 0.8 K/mm3 (0.1-1.0); Monocytes % 7.4 % (1.7-9.3); Neutrophils # 7.4 K/mm3 (1.8-7.8); Neutrophils % 65.6 % (37.0-80.0); Platelet Count 172 K/mm3 (142-424); Red Blood Count 3.94 M/mm3 (4.20-5.40); White Blood Count 11.3 K/mm3 (4.8-10.8)
[2018-11-16 09:18] LABS: HCG Qualitative, Serum Negative (Negative)
[2018-11-16 09:39] LABS: Alanine Aminotransferase 50 U/L (12-78); Albumin Level 3.8 gm/dL (3.4-5.0); Alkaline Phosphatase 111 U/L (46-116); Anion Gap 16.2 mEq/L (5-15); Aspartate Amino Transferase 35 U/L (15-37); Bilirubin,Total 0.4 mg/dL (0.2-1.0); Blood Urea Nitrogen 10 mg/dL (7-18); Carbon Dioxide 25 mmol/L (21.0-32.0); Chloride 102 mmol/L (98-107); Estimated Glomerular Filt Rate 77 ml/min (>60); GFR (African American) 93 ML/MIN (>60); Globulin 3.9 gm/dl (1.3-3.2); Glucose 106 mg/dL (74-106); Potassium 4.2 mmoL/L (3.5-5.1); Sodium 139 mmol/L (136-145); Total Protein,Serum 7.7 gm/dL (6.4-8.2)
== END ==
PROVIDERS: Visit Provider Nurse Practitioner Obstetrics & Gynecology
DX: Z01.818 Encounter for other preprocedural examination (principal)
CPT/HCPCS: 36415; 80053; 84703; 85025

== ENCOUNTER 2018-11-18 08:15 | Observation (INO) ==
[2018-11-18 08:57] LABS: Basophils # 0.1 K/mm3 (0-0.2); Basophils % 0.6 % (0.1-2.0); Eosinophils # 0.5 K/mm3 (0.0-0.4); Eosinophils % 5.3 % (0.1-12.0); Hemoglobin 12.4 g/dL (12.2-16.2); Lymphocytes # 2.1 K/mm3 (0.7-4.5); Lymphocytes % 22.6 % (10-50); Mean Corpuscular HGB Conc 32.7 g/dL (31.8-35.4); Mean Corpuscular Hemoglobin 29.4 pg (27.0-31.2); Mean Corpuscular Volume 90.1 fl (81-99); Mean Platelet Volume 8.4 fl (7.4-10.4); Monocytes # 0.7 K/mm3 (0.1-1.0); Neutrophils % 64.5 % (37.0-80.0); Platelet Count 245 K/mm3 (142-424); Red Blood Count 4.22 M/mm3 (4.20-5.40); Red Cell Distribution Width 16.6 % (11.5-17.5); White Blood Count 9.3 K/mm3 (4.8-10.8)
--- NOTE | 2018-11-18 08:58 | Progress Note ---
[facility] Anesthesia Checklist - Patient Identification Patient Identification: Arm Band - Structural Data Admitted From: Home Planned Operative Procedure/s: lavh,bso Consent for Planned Operative Procedure(s) Verified: Yes Verified Documents: Surgical Consent, History and Physical - NPO Status Verified Time NPO: 00:00 - Additional verifications Anesthesia Reactions: No - Airway Assessment C-Spine Mobility Assessed: Yes (mp2) TMJ Mobility Assessed: Yes Dentition: Good Dentition - Neurological Assessment Level of Consciousness: Awake, Alert - Anesthesia Plan Anesthesia Risk discussed: Yes Anesthesia Plan: Verified ASA Class: II Anesthesia Type: General [facility] History I have reviewed the patient's past medical history: Yes Medical History: Reports:: Gastroesophageal Reflux Disease(GERD) Denies:: Atherosclerotic Heart Disease, Cancer, Coronary Artery Disease, Diabetes Mellitus Type 1, Diabetes Mellitus Type 2, Hepatitis, Hyperlipidemia, Internal Pacemaker, Lung Disease, MRSA, Seizures *Have you ever received a pneumonia vaccine?: No *Have you received a flu vaccine this season?: No Other Medical History: Reports: Anemia, Arthritis, Liver Disease. Denies: Blood Transfusion Reaction, Hypothyroidism Laterality Cases: Bilateral: Tonsillectomy Other Surgeries: Yes: Colonoscopy, . No: Pacemaker Amputation: No Fractures: No - *Social History Educational Level: Completed High School Smoking Status: Never smoker Alcohol Intake: current Alcohol Intake Frequency:: a few times a week Substance Use Type: denies use *Occupational Status:: employed Housing: house Household Members: spouse *Travel in the last 8 weeks: None - Psychiatric History Expresses thoughts of harming self/others: None Suicide Plan Description: No Plan Family Hx:: Diabetes, Heart Attack, Hyperlipidemia, Hypertension
--- NOTE | 2018-11-18 12:07 | Operative Note ---
Date of procedure: 11/18/18 Pre-op Diagnosis:: Menorrhagia, anemia, fibroid uterus, possible endometrial polyp, alcoholic liver disease, thrombocytopenia Post-op Diagnosis:: Menorrhagia, anemia, fibroid uterus, possible endometrial polyp, alcoholic liver disease, thrombocytopenia Procedure performed:: Laparoscopically assisted vaginal hysterectomy and bilateral salpingectomy Surgeon:: Justice Parra MD Category Director(s):: Elizabeth Christiansen RACE [employer] MECHANIC:: Jimmy Durbin Anesthesia: GETA Estimated blood loss (mL): 450 Clinical Note:: She is a 48-year-old lady who complains of extremely heavy periods. She is known to have alcoholic liver disease with thrombocytopenia. She had been scheduled for surgery and her platelets were low. Recently she has been taking a medicine prescribed by Dr. Dougherty to elevate her platelets and her platelets today were 245. She is known to have a fibroid uterus. She also has a possible endometrial polyp as well. She was seen earlier in the year and was quite anemic from heavy vaginal bleeding at the time of her period. After having discussed the risks and benefits we elected to perform a laparoscopically assisted vaginal hysterectomy and bilateral salpingectomy. Operative findings:: She had a bulky retroverted uterus. The ovaries and tubes appeared normal. The fibroid was posteriorly and approximately 3-4 cm in size. The appendix was visualized appeared normal. The upper abdomen appeared normal. Operative note:: She was taken to the operating room where general anesthesia was found be adequate. She was prepped and draped in normal sterile fashion in the semilithotomy position. A weighted speculum was placed in the vagina and the anterior lip of the cervix was grasped with a tenaculum. An acorn uterine manipulator was then placed within the cervical os. I then changed gloves. I injected 10 cc of 0.5% ropivacaine around the umbilicus and made a small incision within the umbilicus. I inserted a Veress needle into the abdominal cavity. The abdominal cavity was then insufflated with carbon dioxide gas to a pressure of 20 mmHg. I then inserted an 11 mm trocar under direct vision. I identified the inferior epigastric arteries on the left side, went lateral to these and injected through and through. I then made a small incision and inserted an 11 mm trocar under direct vision. A similar 11 mm trocar was placed on the right side. She had some adhesions on the anterior abdominal wall that had pulled the bladder upwards. I freed up these adhesions and then inserted a 5 mm trocar under direct vision after having injected through and through. The left round ligament was then grasped and cut through with harmonic scalpel. This was followed by opening up the peritoneum anteriorly to the midline. I then grasped the tube on the left side and cut through this. This is followed by cutting through the left utero-ovarian ligament. I used Harmonic scalpel on the coagulation mode. I then took down the posterior aspect of the broad ligament to the level of the uterosacral ligament. I then skeletonized the uterine arteries on the left side and placed hemoclips on these. Using the harmonic scalpel on coagulation mode adjacent to the cervix I then took down these uterine arteries. I then further freed up the bladder anteriorly and laterally on the left side. I then turned my attention to the right side where I grasped the right round ligament. I then cut through the right round ligament. I then took down the anterior peritoneum to the midline joining up with the other side. There were extensive adhesions here and I carefully took down these adhesions along the bladder and cervix to the level of the distal cervix. I further dissected the bladder off. The posterior aspect of the right broad ligament was then taken down with harmonic scalpel. I skeletonized the uterine arteries on the right side. I applied hemoclips to the uterine arteries and staying adjacent to the cervix on the right side I took down the uterine arteries with harmonic scalpel on coagulation mode. I further freed up the bladder. We then assured hemostasis. I then grasped the distal end of the right tube and using harmonic scalpel I cut along the mesosalpinx. The tube was removed through the 11 mm trocar site. This was only performed on the patient's left side. After once again assuring hemostasis we then turned our attention to the vaginal portion of the surgery. The patient was placed in the lithotomy position and a weighted speculum was placed in the vagina. The anterior and posterior lip of the cervix were grasped with Case tenacula. I then injected 20 cc of 1% Xylocaine with epinephrine circumferentially about the cervix. I then circumscribed the cervix. I opened up in the posterior cul-de-sac using Flowers scissors. I then placed a long weighted speculum through the defect. The left uterosacral ligament was then clamped cut and suture-ligated and tagged. This was followed by the left cardinal ligament which was clamped cut and suture-ligated. I then clamped cut and suture-ligated and tagged the right uterosacral ligament. This was followed by the right cardinal ligament which was clamped cut and suture-ligated. I then grasped the anterior vaginal mucosa and using both sharp and blunt dissection dissected off the bladder. I then opened sharply into the anterior cul-de-sac. A [place] retractor was placed through this defect. Both left and right uterine arteries were then clamped cut and suture-ligated. This freed up the uterus and it was removed through the vagina. Then inserted a short weighted speculum. Posterior cuff was then closed using running 2-0 Vicryl suture in a locked fashion. I then lysed a Prado suture using 0 PDS. I passed it through the vagina and the peritoneum and then through the left perirectal fascia. I then plicated across the posterior peritoneum and through the right perirectal fascia. This was then passed through the peritoneum and vagina and left to be tied at the end. I was unable to grasp the anterior peritoneum so I elected to just close the vaginal cuff. The vaginal cuff was then closed using running 0 Vicryl suture in a locked fashion from left to right from anterior to posterior. A Huizar cath was then placed in the bladder. Clear urine was seen to flow. I then changed gloves and once again insufflated the abdominal cavity with carbon dioxide gas. Hemostasis was once again assured and I rinsed the pelvis. I then sprayed Willa all around the pelvis. I injected approximately 20 cc of 0.5% ropivacaine into the pelvis. I let the gas out of the abdomen and once again hemostasis was assured. The secondary trochars were then removed under direct vision and the sites were hemostatic. The primary trocar and camera were removed together. No bowel was seen to follow. The 11 mm trocar sites were closed deeply with [id number] 2-0 Vicryl suture followed by running subcuticular 4-0 Monocryl suture. 5 mm trocar site was closed with subcuticular 4-0 Monocryl suture. Sterile dressings were applied. The patient tolerated procedure well and was taken to the recovery room in excellent condition. All sponge instrument and needle counts were correct. The estimated blood loss was approximately 450 cc. Condition: stable Disposition: PACU Specimens:: Uterus and fallopian tubes Complications:: None
--- NOTE | 2018-11-18 12:16 | Progress Note ---
[facility] Anesthesia Record Part I Intake, IV Amount: 2,200 Estimated blood loss (mL): 450 Urine output (mL): 150 Blood Pressure: 133/86 SaO2: 96 Pulse Rate: 104 Respiratory Rate: 12 Temperature: 97.8 F Patient is:: Awake, Stable Stable to PACU at:: 12:10
--- NOTE | 2018-11-18 12:17 | Progress Note ---
[facility] Anesthesia Record Part II Discharge Time: 12:40 Destination: floor PACU nurse assessment reviewed?: Yes Patient Condition:: Good Anesthesia Complications:: None Swallowing reflex intact?: Yes Cyanosis?: No
[2018-11-18 16:15] LABS: Hematocrit 30.7 % (37.0-47.0)
[2018-11-18 16:53] LABS: Hemoglobin 10.9 g/dL (12.2-16.2)
--- NOTE | 2018-11-18 17:21 | Discharge Summary ---
General - General Admission date:: 11/18/18 Discharge date: 11/19/18 HPI HPI: She is a 48-year-old 2 para 2 lady who complains of very heavy periods. She was admitted a month or so ago with anemia and severe heavy bleeding. She was transfused at that time. She has alcoholic liver disease and has had low platelets. She was recently prescribed a medication by Dr. Dougherty to increase her platelets. Today her platelets are 245 prior to surgery. She is known to have a fibroid uterus with a possible endometrial fibroid as well. As result of that she is offered laparoscopic assisted vaginal hysterectomy and bilateral salpingectomy. Hospital Course Hospital Course: On November 18, 2018 she underwent a laparoscopically assisted vaginal hysterectomy and bilateral salpingectomy. She has done well postoperatively and has remained afebrile throughout her hospitalization. She is eating and drinking and ambulating. She denies any chest pain, shortness of breath or calf tenderness. She will be discharged home to follow-up with me in approximately 2 weeks time. She will continue with her home medications. She was given a prescription for oxycodone 5 mg 1 or 2 tablets to take every 4 hours as needed for pain. she was given 30 tablets. She was given the usual instructions with respect to limiting her activity, driving and sexual activity. Her condition on discharge is stable. Objective Vital signs: Temp Pulse Resp BP Pulse Ox 98.9 F 87 18 122/69 98 11/18/18 15:40 11/18/18 15:40 11/18/18 15:40 11/18/18 15:40 11/18/18 15:40 no acute distress - *Routine HEENT Exam Head: Present: normocephalic - *Routine Respiratory Exam Absent: accessory muscle use - *Routine Cardiovascular Exam Present: RRR - *Routine Abdominal Exam Present: soft, normoactive bowel sounds, surgical scars Comments: Her incisions are clean and dry. Results Labs on day of discharge: Labs from last 24 hours 11/18/18 11/18/18 11/18/18 16:08 11:45 08:40 WBC 9.3 RBC 4.22 Hgb 10.9 L D 12.4 Hct 30.7 L 38.0 MCV 90.1 MCH 29.4 MCHC 32.7 RDW 16.6 Plt Count 245 D MPV 8.4 Neut % (Auto) 64.5 Lymph % (Auto) 22.6 Ray % (Auto) 7.0 Eos % (Auto) 5.3 Baso % (Auto) 0.6 Neut # (Auto) 6.0 Lymph # (Auto) 2.1 Ray # (Auto) 0.7 Eos # (Auto) 0.5 H Baso # (Auto) 0.1 Urine Color Yellow Urine Appearance Clear Urine pH 5.5 Ur Specific [place] 1.015 Urine Protein Negative Urine Glucose (UA) Negative Urine Ketones Negative Urine Blood Trace-i Urine Nitrate Negative Urine Bilirubin Negative Urine Urobilinogen 0.2 Ur Leukocyte Esterase Negative Urine RBC Occasional Urine WBC Occasional Ur Squamous Epith Cells 3-5 Urine Bacteria 1+ DS: Diagnosis - Discharge Diagnosis (1) Uterine fibroid Status: Acute (2) Blood loss anemia Status: Acute (3) Menorrhagia Status: Acute (4) Abnormal liver ultrasound Status: Chronic (5) Thrombocytopenia Status: Chronic Discharge Plan - Patient Discharge Instructions ACTIVITY: No heavy lifting DIET: continue same diet - Follow up Plan Disposition: Home, Self-Alf Medications: Home Medications Medication Instructions Recorded Confirmed Type Bifidobacterium Infantis [Align] 4 mg PO DAILY 04/29/18 11/18/18 History Calcium Polycarbophil [FiberCon 625 mg PO BID 04/29/18 11/18/18 History 625mg tablet] Cholecalciferol (Vitamin D3) [D3 2,000 unit PO DAILY 04/29/18 11/18/18 History Dots] Multivitamin [Multivitamins] 1 each PO DAILY 04/29/18 11/18/18 History Omeprazole [Omeprazole 20mg Tab] 20 mg PO DAILY 09/16/18 11/18/18 History Ferrous Sulfate [Ferrous Sulfate 325 mg PO DAILY 09/17/18 11/18/18 History 325mg Tablet] lusutrombopag 3 mg tablet 3 mg PO DAILY 30 Days #7 tab 10/30/18 11/18/18 History Oxycodone HCl [Oxycodone (IR) 5mg 1 - 2 cap PO Q4-6H PRN #30 cap 11/18/18 Rx Cap] Prescriptions/Medication Reconciliation: New Oxycodone HCl [Oxycodone (IR) 5mg Cap] 1 - 2 cap PO Q4-6H PRN #30 cap PRN Reason: Severe Pain Continue Multivitamin [Multivitamins] 1 each PO DAILY Cholecalciferol (Vitamin D3) [D3 Dots] 2,000 unit PO DAILY Calcium Polycarbophil [FiberCon 625mg tablet] 625 mg PO BID Bifidobacterium Infantis [Align] 4 mg PO DAILY Omeprazole [Omeprazole 20mg Tab] 20 mg PO DAILY Ferrous Sulfate [Ferrous Sulfate 325mg Tablet] 325 mg PO DAILY Discontinued lusutrombopag 3 mg tablet 3 mg PO DAILY 30 Days #7 tab
[2018-11-19 06:07] LABS: Basophils % 0.1 % (0.1-2.0); Eosinophils # 0.1 K/mm3 (0.0-0.4); Eosinophils % 0.5 % (0.1-12.0); Hematocrit 31.2 % (37.0-47.0); Lymphocytes # 1.9 K/mm3 (0.7-4.5); Lymphocytes % 10.7 % (10-50); Mean Corpuscular HGB Conc 32.1 g/dL (31.8-35.4); Mean Corpuscular Hemoglobin 29.8 pg (27.0-31.2); Mean Corpuscular Volume 92.9 fl (81-99); Mean Platelet Volume 8.8 fl (7.4-10.4); Monocytes # 1.2 K/mm3 (0.1-1.0); Monocytes % 6.6 % (1.7-9.3); Neutrophils # 14.2 K/mm3 (1.8-7.8); Neutrophils % 82.1 % (37.0-80.0); Platelet Count 309 K/mm3 (142-424); Red Blood Count 3.36 M/mm3 (4.20-5.40); White Blood Count 17.3 K/mm3 (4.8-10.8)
[2018-11-19 06:11] LABS: Anion Gap 13.1 mEq/L (5-15); Calcium 8.6 mg/dL (8.5-10.1); Potassium 4.1 mmoL/L (3.5-5.1)
[2018-11-19 08:06] LABS: Lymphocytes % 10 % (10-50); Monocytes % 6 % (2-9); Neutrophils % 79 % (42-76); Total Cells Counted 100
== END 2018-11-19 10:30 | disposition home or self-care (01) ==
LOC: OB 08:15 → OR 08:15
PROVIDERS: ADMIT Nurse Practitioner Obstetrics & Gynecology; ATTEND Nurse Practitioner Obstetrics & Gynecology
CPT/HCPCS: 36415; 80048; 81001; 85007; 85014; 85018; 85025; 94761; 96374; G0378; J2405; J2710

== ENCOUNTER → 2019-03-28 16:15 | Outpatient (CLI) | payer BC, SELFPAY ==
[2019-03-28 17:15] LABS: Basophils # 0.1 K/mm3 (0-0.2); Basophils % 0.5 % (0.1-2.0); Eosinophils # 0.2 K/mm3 (0.0-0.4); Eosinophils % 1.9 % (0.1-12.0); Hematocrit 46.7 % (37.0-47.0); Hemoglobin 15.8 g/dL (12.2-16.2); Lymphocytes # 2.1 K/mm3 (0.7-4.5); Lymphocytes % 20.8 % (10-50); Mean Corpuscular HGB Conc 33.8 g/dL (31.8-35.4); Mean Corpuscular Hemoglobin 31.3 pg (27.0-31.2); Mean Corpuscular Volume 92.6 fl (81-99); Mean Platelet Volume 9.4 fl (7.4-10.4); Monocytes # 0.7 K/mm3 (0.1-1.0); Monocytes % 7.4 % (1.7-9.3); Neutrophils # 6.9 K/mm3 (1.8-7.8); Neutrophils % 69.4 % (37.0-80.0); Red Blood Count 5.05 M/mm3 (4.20-5.40); Red Cell Distribution Width 15.7 % (11.5-17.5); White Blood Count 9.9 K/mm3 (4.8-10.8)
[2019-03-28 17:33] LABS: Platelet Count 17 K/mm3 (142-424)
== END ==
PROVIDERS: Visit Provider Family Medicine
DX: D69.6 Thrombocytopenia, unspecified (principal)
CPT/HCPCS: 36415; 85025; 86900; 86901

== ENCOUNTER 2019-03-29 09:12 | Outpatient (CLI) | payer BC, SELFPAY ==
[2019-03-29] VITALS (8 sets, daily range): BP systolic 115–125; BP diastolic 70–79; PULSE 71–78; RESP 16–17; TEMP 36.5–36.6; O2SAT 98–99; BMI 28.5
[2019-03-29 11:17] LABS: Platelet Count 59 K/mm3 (142-424)
== END 2019-03-29 11:35 | disposition home or self-care (01) ==
LOC: INF 09:13
PROVIDERS: PCP Physician Assistant; Visit Provider Physician Assistant
DX: D69.6 Thrombocytopenia, unspecified (principal)
CPT/HCPCS: 36430; 85049; P9034

== ENCOUNTER → 2019-04-18 14:32 | Outpatient (CLI) | payer BC, SELFPAY ==
[2019-04-18 15:27] LABS: Basophils % 0.4 % (0.1-2.0); Eosinophils # 0.3 K/mm3 (0.0-0.4); Eosinophils % 3.4 % (0.1-12.0); Hematocrit 41.4 % (37.0-47.0); Hemoglobin 14.1 g/dL (12.2-16.2); Lymphocytes # 2.7 K/mm3 (0.7-4.5); Lymphocytes % 30.8 % (10-50); Mean Corpuscular Hemoglobin 31.9 pg (27.0-31.2); Mean Corpuscular Volume 93.7 fl (81-99); Mean Platelet Volume 9.1 fl (7.4-10.4); Monocytes # 0.6 K/mm3 (0.1-1.0); Monocytes % 7.3 % (1.7-9.3); Neutrophils # 5.1 K/mm3 (1.8-7.8); Neutrophils % 58.1 % (37.0-80.0); Red Blood Count 4.42 M/mm3 (4.20-5.40); Red Cell Distribution Width 14.2 % (11.5-17.5); White Blood Count 8.7 K/mm3 (4.8-10.8)
[2019-04-18 15:30] LABS: Activated Partial Thrombo Time 25.5 seconds (23.6-34.0); INR 0.97 (0.9-1.1); Prothrombin Time 10.1 seconds (9.4-11.8)
[2019-04-18 16:33] LABS: Platelet Count 37 K/mm3 (142-424)
== END ==
PROVIDERS: Visit Provider Physician Assistant
DX: R04.0 Epistaxis (principal)
CPT/HCPCS: 36415; 85025; 85610; 85730

== ENCOUNTER → 2019-05-27 09:42 | Outpatient (CLI) | payer BC, SELFPAY ==
--- NOTE | 2019-05-27 09:43 | MM_ITS ---
PROCEDURE: MM DIG SCREENING MAMM BI W/CAD CLINICAL INDICATION: Routine Screening Mammogram There is no personal or family history of breast cancer. COMPARISON: None, this is baseline TECHNIQUE: Standard CC and MLO images were obtained. R2 CAD reviewed. FINDINGS: Moderate fibroglandular densities are seen in the central portions of both breasts and the findings of bilateral and symmetrical except for possible small asymmetric density lower portion left breast only definitely seen on the MLO view. Is somewhat irregular borders. This could be a summation shadow but recommend the patient return for spot compression views and ultrasound may be necessary as well. There are no suspicious microcalcifications. Several small nodes in both axilla. IMPRESSION: Moderate breast density with possible asymmetric density left breast BI-RAD Category: 0 Need Additional Imaging Evaluation FOLLOW-UP: IMM Immediate Follow-up Recommended (A letter has been sent to the patient regarding results of the study.) Dictated by: Dr. Chuy Ryan MD 05/28/2019 19:[address] Chuy Ryan MD in [place] 05/28/2019 19:34
== END ==
PROVIDERS: PCP Physician Assistant; Visit Provider Nurse Practitioner Obstetrics & Gynecology
DX: Z12.31 Encounter for screening mammogram for malignant neoplasm of breast (principal)
CPT/HCPCS: 77067

== ENCOUNTER → 2019-06-16 08:39 | Outpatient (CLI) | payer BC, SELFPAY ==
--- NOTE | 2019-06-16 08:43 | CT_ITS ---
PROCEDURE: CT ABDOMEN W CON CLINICAL HISTORY: THROMBOCYTOPENIA COMPARISON: No exams were available for comparison TECHNIQUE: 75 mL Optiray 350 IV Axial images obtained with sagittal and coronal reformats. All CT scans at the facility use one or more dose reduction, viz: automated exposure control, ma/kV adjustment per patient size (including targeted exams where dose is matched to indication, i.e. head), or iterative reconstruction technique. FINDINGS: There is a 4 mm hypodensity in the anterior segment of the right hepatic lobe nonspecific too small to categorize. The liver is otherwise unremarkable. There is normal spleen size. The spleen has an unremarkable appearance. The gallbladder, adrenal glands, and pancreas have an unremarkable appearance. No renal or ureteral calculi. No hydronephrosis or renal mass. There are few small lymph nodes in the celiac region nonspecific. No intestinal obstruction or free air. The study does not include the pelvis. The visualized bony structures are unremarkable. Tiny umbilical hernia containing fat IMPRESSION: Essentially negative CT abdomen. No splenomegaly. 4 mm hypodensity of the liver too small to categorize but may represent a small cyst Dictated by: Ashutosh Moss MD 06/17/2019 07:38 Electronically signed by Ashutosh Moss MD in [facility] 06/17/2019 07:38
== END ==
PROVIDERS: PCP Physician Assistant; Visit Provider Internal Medicine Hematology & Oncology
DX: D69.6 Thrombocytopenia, unspecified (principal)
CPT/HCPCS: 74160; Q9967

== ENCOUNTER → 2019-06-30 14:26 | Outpatient (CLI) | payer BC, SELFPAY ==
--- NOTE | 2019-06-30 14:27 | MM_ITS ---
PROCEDURE: MM DIG MAMM DX UNILAT LT CAD CLINICAL INDICATION: Dx Mammogram of left breast- Abnormal Mamm COMPARISON: MM DIG SCREENING MAMM BI W/CAD from 05/27/2019 TECHNIQUE: Spot compression MLO and CC views were obtained and 90 degree lateral view FINDINGS: The asymmetric density appears to press out on the spot compression CC views. It partially compresses on the spot MLO view and appears represent asymmetric glandular tissue on the additional views including the 90 degree lateral view. Ultrasound examination performed same date showed no suspicious cystic or solid mass. IMPRESSION: Essentially negative problem solving views BI-RAD Category: 1 Negative FOLLOW-UP: 1YR 1 Year Follow-up (A letter has been sent to the patient regarding results of the study.) Dictated by: Dr. Chuy Ryan MD 07/04/2019 10:[address] Chuy Ryan MD in [place] 07/04/2019 10:52
--- NOTE | 2019-06-30 14:58 | US_ITS ---
PROCEDURE: US BREAST LT COMPLETE CLINICAL INDICATION: LT BREAST DENSITY COMPARISON: No exams were available for comparison FINDINGS: There is a small benign-appearing cystic lesion near the nipple at the 12 o'clock position measuring 0.4 by 0.5 x 0.3 cm. There is a hypoechoic cystic appearing lesion with internal echoes at the 4 o'clock position mid breast measuring 0.9 by 0.4 x 0.4 cm. This likely is a complex cyst with internal debris. There is a tiny benign-appearing cystic lesion at the 7 o'clock position near the nipple measuring 0.4 by 0.3 x 0.2 cm. There are couple normal appearing nodes in the axilla. IMPRESSION: Small benign-appearing cystic lesions as described, no ultrasound correlation of possible asymmetric density seen on the mammogram and prominent swelling views and recommend the patient continue yearly screening mammography. Dictated by: Dr. Chuy Ryan MD 07/04/2019 10:[address] Chuy Ryan MD in [place] 07/04/2019 10:56
== END ==
PROVIDERS: PCP Physician Assistant; Visit Provider Nurse Practitioner Obstetrics & Gynecology
DX: R92.8 Other abnormal and inconclusive findings on diagnostic imaging of breast (principal)
CPT/HCPCS: 76641; 77065

== ENCOUNTER → 2021-03-23 13:50 | Outpatient (CLI) | payer BC, SELFPAY | PROVIDERS: Visit Provider Physician Assistant | DX: Z20.822 Contact with and (suspected) exposure to COVID-19 (principal) | CPT/HCPCS: U0003 ==

== ENCOUNTER → 2021-09-05 14:16 | Outpatient (CLI) | payer BC, SELFPAY | PROVIDERS: Visit Provider Nurse Practitioner | DX: Z20.822 Contact with and (suspected) exposure to COVID-19 (principal) | CPT/HCPCS: C9803; U0003; U0005 ==

== ENCOUNTER 2021-10-13 11:05 | Emergency (ER) | payer BC, SELFPAY ==
[2021-10-13 11:15] VITALS: BP 120/81; PULSE 116; RESP 16; TEMP 36.7; O2SAT 98; BMI 27.9
--- NOTE | 2021-10-13 11:16 | HMH.EDUTC ---
[facility] – [place], [place] Disposition Clinical Impression: Viral syndrome, Exposure to COVID-19 virus Pharyngitis Qualifiers: Pharyngitis/tonsillitis etiology: unspecified etiology Qualified Code(s): J02.9 - Acute pharyngitis, unspecified Disposition: Home, Self-Care Condition on Discharge: Good Instructions: DI for COVID-19 (Suspected or Confirmed ), Preventing the Spread of Coronavirus Discharge Instructions Additional Instructions: Drink plenty of fluids. Take tylenol or ibuprofen for pain or fever. Take the medications as directed. Follow up with your regular doctor. GO TO THE ER FOR ANY WORSENING SYMPTOMS Quarantine until you know the results of your covid-19 test. Notify your school or workplace of your results and follow their instructions regarding return to work/school. Prescriptions: Ondansetron [Zofran 4mg ODT] 4 mg PO Q8HP PRN #20 tab PRN Reason: Nausea Transmission Status: Received by [facility] #[id number] Benzonatate [Benzonatate 100mg cap] 100 mg PO TIDP PRN #30 cap PRN Reason: Cough Transmission Status: Received by [facility] #[id number] Azithromycin [Z-Hemant 250mg Tab*] 250 mg PO UD DOSE PK #6 tab Transmission Status: Received by [facility] #[id number] Referrals: Sharita López PA [Primary Care Provider] - Forms: Work/School Release Time of Disposition: 12:06 Medical Decision Making - Medical Records Medical records reviewed: No: I reviewed the patient's medical records. - Marcus Inquiry Pt receiving controlled substance: No Vital Signs: 10/13/21 11:15 10/13/21 12:12 Temperature 98.1 F 98.1 F Temperature Source Oral Pulse Rate 116 H Pulse Rate [Left] 116 H Respiratory Rate 16 16 Blood Pressure 120/81 Blood Pressure [Right Arm] 120/81 Blood Pressure Mean [Right Arm] 94 02 Sat by Pulse Oximetry 98 - Lab Data Lab results reviewed: Yes: I reviewed the patient's lab results. Lab Results 10/13/21 11:49: Strep Scn Rapid Clinic Negative Orders (Tests/Meds): ORDERS Category Date Time Status Strep Screen Confirmation Stat Micro 10/13/21 11:49 Received [facility] [place], [place] HPI - General Stated complaint: sore throat, cough, runny nose/congestion Time Seen by Provider: 10/13/21 11:16 - History of Present Illness Provider Complaint: She states that for the past 2 days she has had sore throat, sinus congestion, body aches, chills and a cough. - Related Data Home Medications Medication Instructions Recorded Confirmed Bifidobacterium Infantis [Align] 4 mg PO DAILY 04/29/18 04/03/19 Cholecalciferol (Vitamin D3) [D3 2,000 unit PO DAILY 04/29/18 04/03/19 Dots] Multivitamin [Multivitamins] 1 each PO DAILY 04/29/18 04/03/19 calcium polycarbophiL [FiberCon 625 mg PO BID 04/29/18 04/03/19 625mg tablet] Omeprazole [Omeprazole 20mg Tab] 20 mg PO DAILY 09/16/18 04/03/19 Ferrous Sulfate [Ferrous Sulfate 325 mg PO DAILY 09/17/18 04/03/19 325mg Tablet] lusutrombopag 3 mg tablet 3 mg PO DAILY 30 Days #7 tab 10/30/18 04/03/19 buspirone 10 mg tablet 10 mg PO TID 04/03/19 04/03/19 Previous Rx's Medication Instructions Recorded Oxycodone HCl [Oxycodone (IR) 5mg 1 - 2 cap PO Q4-6H PRN #30 cap 11/18/18 Cap] Azithromycin [Z-Hemant 250mg Tab*] 250 mg PO UD DOSE PK #6 tab 10/13/21 Benzonatate [Benzonatate 100mg 100 mg PO TIDP PRN #30 cap 10/13/21 cap] Ondansetron [Zofran 4mg ODT] 4 mg PO Q8HP PRN #20 tab 10/13/21 Allergies Allergy/AdvReac Type Severity Reaction Status Date / Time No Known Allergies Allergy Verified 04/03/19 15:38 [facility] History - Hepatitis A Screen Attestation statement:: This patient has been screened for Hepatitis A risk factors. I have reviewed the patient's past medical history: Yes Medical History: Reports:: Gastroesophageal Reflux Disease(GERD) Denies:: Atherosclerotic Heart Disease, Cancer, Coronary Artery Disease, Diabetes Mellitus Type 1, Diabetes Mellitus Type 2, Hepatitis, Hyperlipidemia,
[2021-10-13 12:02] LABS: UTC Strep Screen (Rapid) Negative (Negative)
[2021-10-13 12:12] VITALS: BP 120/81; PULSE 116; RESP 16; TEMP 36.7
== END 2021-10-13 12:12 | disposition home or self-care (01) ==
PROVIDERS: Emergency Provider Nurse Practitioner Family; PCP Physician Assistant
DX: J02.9 Acute pharyngitis, unspecified (principal); B34.9 Viral infection, unspecified; D64.9 Anemia, unspecified; K21.9 Gastro-esophageal reflux disease without esophagitis; M19.90 Unspecified osteoarthritis, unspecified site; K76.9 Liver disease, unspecified; Z20.822 Contact with and (suspected) exposure to COVID-19; Z79.899 Other long term (current) drug therapy; Z87.891 Personal history of nicotine dependence; Z82.49 Family history of ischemic heart disease and other diseases of the circulatory system; Z83.3 Family history of diabetes mellitus; Z83.438 Family history of other disorder of lipoprotein metabolism and other lipidemia
CPT/HCPCS: 87880; 99213; C9803; G0463; U0003; U0005

== ENCOUNTER → 2021-10-20 09:44 | Outpatient (CLI) | payer BC, SELFPAY ==
[2021-10-20 10:35] LABS: Basophils # 0.2 K/mm3 (0-0.2); Basophils % 1.6 % (0.1-2.0); Eosinophils # 0.3 K/mm3 (0.0-0.4); Eosinophils % 2.2 % (0.1-12.0); Hematocrit 49.8 % (37.0-47.0); Hemoglobin 16.7 g/dL (12.2-16.2); Lymphocytes % 19.9 % (10-50); Mean Corpuscular HGB Conc 33.5 g/dL (31.8-35.4); Mean Corpuscular Volume 98.4 fl (81-99); Mean Platelet Volume 8.3 fl (7.4-10.4); Monocytes # 1.1 K/mm3 (0.1-1.0); Neutrophils # 10.4 K/mm3 (1.8-7.8); Neutrophils % 69.5 % (37.0-80.0); Platelet Count 201 K/mm3 (142-424); Red Blood Count 5.06 M/mm3 (4.20-5.40); Red Cell Distribution Width 12.7 % (11.5-17.5)
[2021-10-20 11:17] LABS: MANUAL DIFFERENTIAL MANUAL DIFFERENTIAL (MANUAL DIFF)
[2021-10-20 11:19] LABS: Eosinophils % 2 % (0-3); Lymphocytes % 21 % (10-50); Monocytes % 8 % (2-9); Neutrophils % 68 % (42-76); Platelet Estimate Normal; RBC Morphology Normal; Total Cells Counted 100
== END ==
PROVIDERS: PCP Physician Assistant; Visit Provider Physician Assistant
DX: Z20.822 Contact with and (suspected) exposure to COVID-19 (principal)
CPT/HCPCS: 36415; 85007; 85025; 87275; 87276; C9803; U0003; U0005

== ENCOUNTER → 2023-07-31 11:19 | Outpatient (CLI) | payer BC, SELFPAY ==
--- NOTE | 2023-07-31 11:26 | XR_ITS ---
FINAL REPORT CLINICAL HISTORY: FOOT PAIN FINDINGS: 3 views of the left foot were obtained. There is no acute fracture or dislocation. There is moderate hallux valgus deformity. The soft tissues are unremarkable. IMPRESSION: No acute process. Reviewed, Interpreted and Dictated by Vijay Woo MD Transcribed by Roly Perez Authenticated and [facility]
== END ==
PROVIDERS: PCP Physician Assistant; Visit Provider Nurse Practitioner Family
DX: M79.672 Pain in left foot (principal)
CPT/HCPCS: 73630

== ENCOUNTER 2024-03-27 07:54 | Outpatient (CLI) | payer BC, SELFPAY ==
--- NOTE | 2024-03-27 07:59 | MM_ITS ---
PROCEDURE INFORMATION: Exam: MG Bilateral Screening 3D Mammography Exam date and time: 03/27/2024 8:04 AM Age: 53 years old Clinical indication: Screening examination TECHNIQUE: Imaging protocol: Bilateral Screening tomosynthesis and 2D mammography including computer-aided detection (CAD) when performed. COMPARISON: 1. MG MM DIG MAMM DX UNILAT LT CAD 06/30/2019 2:35 PM 2. MG MM DIG SCREENING MAMM BI W/CAD 05/27/2019 10:07 AM FINDINGS: MAMMOGRAPHY: Breast composition: There are scattered areas of fibroglandular density. Mass: No suspicious masses. Architectural distortion: None. Calcifications: No suspicious calcifications. Asymmetric density: None. Skin thickening: None. Axillary adenopathy: None. IMPRESSION: No mammographic evidence of malignancy. Annual screening is recommended unless otherwise clinically indicated. ASSESSMENT: BI-RADS Category 1: Negative
== END 2024-03-27 23:59 | disposition home or self-care (01) ==
LOC: RAD 07:55
PROVIDERS: PCP Physician Assistant; Visit Provider Nurse Practitioner Family
DX: Z12.31 Encounter for screening mammogram for malignant neoplasm of breast (principal)
CPT/HCPCS: 77063; 77067

== ENCOUNTER 2025-03-10 11:56 | Outpatient (CLI) | payer BC, SELFPAY ==
--- OUTSIDE RECORDS SUMMARY | 2024-12-10 10:15 | XMS_ITS ---
Author Organization [facility] Address [address] [place] [phone] Care Team Providers Care Operator Ground Based Air Defence Name Role Phone Kandis Rodney Primary Care Provider DorianSharita silvestre Unavailable [phone] Allergies No Known Allergies Results Component Value [...] A DAY Active Vitamin D3 1.25 MG (48455 UT) 1 cap(s) orally once a day; [...] 12/10/2024 Encounters Encounter Location Date Provider Diagnosis [facility] [address] [place], [place] [phone] 12/10/2024 Sharita López Acute pharyngitis du e [...] Notes * MARA ACHOMEOB:1970 (54 yo F)Acc No.[id number]:12/10/2024 Progress Notes Patient: CORETTA SENA Provider: PATRICIA Olvera DOB:1970 A ge:54 Y S ex:Female Date:12/10/2024 Address:[address] [place] [address] [id number] Pcp:Kandis Rodney Subjective: * Chief Complaints: * [...] DAY , Taking Vitamin D3 1.25 MG (66221 UT) Capsule 1 cap(s) orally once a [...] T hrombocytopenia - D69.6 4 . B [place] 23.0-23.9, adult - Z68.23 Plan: * Treatment: [...] STREP A ASSAY W/OPTIC, Modifiers: QW , 67135 CAPILLARY BLOOD DRAW, 91390 CBC WITH AUTO DIFF * Follow Up: p rn * Images: Billing Information: * Visit Code: 79112 Office Visit, Est Pt., Level 3. * Procedure Codes: 16423 STREP A ASSAY W/OPTIC. Modifiers: QW 10076 CAPILLARY BLOOD DRAW. 30003 CBC WITH AUTO DIFF. * Electronic signature of PATRICIA Puga on 03/10/2025 at 11:59 AM EDT Sign off status: Pending * Provider: PATRICIA Olvera Date: 12/10/2024 Generated for Aldai ng/Faalyciag/eTransmitting on: 03/10/2025 11:59 AM EDT History and Physical Notes * [...]
--- OUTSIDE RECORDS SUMMARY | 2025-03-04 05:30 | XMS_ITS ---
Author Organization [facility] Address [address] [facility] [address] [facility] [address] [place] [phone] Care Team Providers Care Flight Mechanic Name Role Phone Kandis Rodney Primary Care Provider Sharita López [phone] REASON FOR VISIT check up, Needs labs, mammogram due in March, Tdap, & shingles vaccine Encounters Encounter Location Date Provider Diagnosis [facility] [address] [place] [phone] 03/04/2025 Sharita López Plan Of Treatment No Information Progress Notes * HAYDEN ACOB:1970 (54 yo F)Acc No.[id number]:03/04/2025 Progress Notes Patient: CORETTA SENA Provider: PATRICIA Olvera :1970 A ge:54 Y S ex:Female Date:03/04/2025 Address:[address] [facility] [place], [id number] Pcp:Kandis Rodney Subjective: * Chief Complaints: * 1 . Check up. 2. Needs labs, mammogram due in March, Tdap, & shingles vaccine. * Medical History: Objective: * Vitals: Assessment: Plan: * Treatment: * Images: Billing Information: * Visit Code: * Procedure Codes: * Electronic signature of PATRICIA Puga on 03/10/2025 at 11:59 AM EDT Sign off status: Pending * Provider: PATRICIA Olvera Date: 0 03/04/2025 Generated for Tamar bledsoe/Lb/Vitaliy on: 0 03/10/2025 11:59 AM EDT
--- OUTSIDE RECORDS SUMMARY | 2025-03-10 11:59 | XMS_ITS | Encounter Summary ---
Author Organization [facility] Address [address] [place] [address] Care Team Providers Care Professor Of Geography Name Role Phone Sharita López Primary Care Provider [phone] Encounter Details Date Type Department Care Team (Late st Contact Info) Description 12/29/2011 Conversion Encounter [facility] [address] [place] [address] Interface, See Report Social History Tobacco Use Types Packs/Day Years Used Date Smoking Tobacco: Never Assessed Comments Unknown Sex and Gender Information Value Date Recorded Sex Assigned at Not on file Legal Sex Female 11:37 AM EDT Gender Identity Not on file Sexual Orientation Not on file documented as of this encounter H&P Notes * Interface, See Report - 12/29/2011 9:56 AM EDT Hussain Rios M.D. ' Jeromy Ovalles M.D. ' Goyo Khanna M.D. ' LAURIE Valentine M.D. ' Naveen Owens M.D. ' Rima Elizabeth APRN [facility], [address] [place] [address] [facility] [employer] OFFICE NOTE CORETTA LEROY : 1970 DATE OF VISIT: 01/12/2012 REASON FOR VISIT: Follow-up for thrombocytopenia. HISTORY OF PRESENT ILLNESS: Ms. Leroy is a very pleasant 41 years of age female with past medical history significant for thrombocytopenia. The patient had blood work done on December 29, 2011 and she is here today to discuss the results. SUBJECTIVE: The patient continues to do extremely well. She denied any fever or chills. No shortness of breath. No chest pain. No bleeding. No change in urine or stool color. She continues to have mild easy bruising. REVIEW OF SYSTEMS: All the other nine systems are reviewed by me and negative except as mentioned in HPI. PAST MEDICAL HISTORY/SOCIAL HISTORY/FAMILY HISTORY: Unchanged from my prior documentation done on December 29, 2011. MEDICATION LIST: Reviewed by me and documented in the patient's chart. PHYSICAL EXAM: VITAL SIGNS: Temperature 97.8. Heart rate 82. Respiratory rate 20. Blood pressure 130/82. GENERAL: Age appropriate. No acute distress. HEENT: Head atraumatic, normocephalic. NECK: Supple. No JVD. LUNGS: Clear to auscultation bilaterally. No wheezing. No rhonchi. HEART: S1, S2. No murmurs. CORETTA LEROY : 1970 DATE OF VISIT: 01/12/2012 PHYSICAL EXAMINATION - continued: ABDOMEN: Soft. Nontender. Not distended. Bowel sounds positive. No hepatosplenomegaly. EXTREMITIES: No clubbing, cyanosis, or edema. SKIN: No rashes. No purpura. NEUROLOGIC: Awake and oriented x3. 5/5 strength in all muscle groups. DATA: Blood work done on December 29, 2011: peripheral blood smear showed thrombocytopenia. No other abnormalities. CBC - white blood cells 8.5, hemoglobin 13.8, MCV 94, platelets 48, sedimentation rate 15, retic count 1.1, INR 2.9, PTT 25, normal electrolytes, normal kidney function, normal liver enzymes, LDH 188, ferritin 26, vitamin B12 553, folate more than 24, TSH 2.0, negative hepatitis profile. CBC done on January 12, 2012 showed platelets 62. ASSESSMENT: Ms. Leroy is a very pleasant 41 years of age female with thrombocytopenia. PROBLEM LIST: 1. Thrombocytopenia. 2. Anxiety. PLAN: 1. I did go over the blood work results in detail with Ms. Leroy. I assured her that all of the testing came back normal except the thrombocytopenia. 2. Given the fact that her platelet count has already improved today and she is completely asymptomatic, I felt comfortable to do observation. 3. The patient will come back to see me in three months with repeat CBC. If her platelets continue to be stable and improving I would recommend to do observation. On the other hand, if her thrombocytopenia gets worse I would recommend to do a bone marrow biopsy at that point. The most common underlying etiology at this point is immune mediated. CORETTA LEROY : 1970 DATE OF VISIT: 01/12/2012 The plan was discussed in detail with Ms. Leroy. All of her questions were answered. Ms. Leroy feels comfortable with the above plan. Naveen Owens M.D.* FB/rxalw Doc. ID [id number] Rev. #0 cc: Dr. Espinoza [place], [place] Page 3 of 3 Page 1 of 3 Authenticated by NAVEEN OWENS MD On 01/16/2012 10:35:19 AM documented in this encounter Plan of Treatment Not on file documented as of this encounter Visit Diagnoses Not on filedocumented in this encounter Care Teams Professor Of Geography Relationship Specialty Start Date End Date Sharita López PA [address] [place] [address] [facility] [address] [place] [address] PCP - General Physician Cattle Tester 02/12/20 documented as of this encounter
--- OUTSIDE RECORDS SUMMARY | 2025-03-10 11:59 | XMS_ITS | Clinical Summary ---
Author Organization [facility] Address [address] [place] [address] Care Team Providers Care Business Management Intern Name Role Phone Sharita López Primary Care Provider [phone] Allergies Active Allergy Reactions Criticality Noted Date Comments No Known Drug Allergy 06/13/2016 Medications Multiple Vitamins-Minera ls (MULTIVITAMIN WITH MINERALS) tablet tablet Take 1 tablet by mouth Daily. Active Cholecalciferol (D3 ADULT PO) Take by mouth. A ctive Lactobacillus (ACIDOPHILUS PROBIOTIC) 100 MG capsule Take by mouth. Acti ve metoprolol succinate XL (TOPROL-XL) 25 MG 24 hr tablet Take by mouth Daily. 0 Active diazePAM (VALIUM) 5 MG tabletIndicatio ns:Thrombocytop enia Take 1 tablet by mouth Take As Directed. 45-60 mins prior to invasive medical procedures 2 tablet 0 Active predniSONE (DELTASONE) 10 MG tablet Take 6 tablets by mouth Daily. 100 tablet 1 0 Active Active Problems Problem Noted Date Diagnosed Date Idiopathic thrombocytopenic purpura (ITP) 2019 Thrombocytopenia 06/09/2019 Chronic diarrhea 12/25/2016 Right lateral epicondylitis 07/17/2016 Dysthymia 06/13/2016 Heart palpitations 06/13/2016 Elevated blood pressure (not hypertension) 06/13 Diarrhea 06/13/2016 Backache 06/12/2016 Resolved Problems Problem Noted Date Diagnosed Date Resolved Date Episodic pulmonary hypertension 10/24/2016 10/24/2016 Family History Medical History Relation Name Comments Coronary artery disease Father Heart attack Father Heart disease Father Hyperlipidemia Father Diabetes Mother Heart disease Mother Hyperlipidemia Mother Diabetes Other Heart attack Other Hyperlipidemia Other Hypertension Other Relation Name Status Comments Father Alive Mother Alive Other Son Social History Tobacco Use Types Packs/Day Years Used Date Smoking Tobacco: Former Smokeless Tobacco: Never Tobacco Cessation:Counseling Given: Not Answered Alcohol Use Standard Drinks/Week Comments Yes 0 (1 standard drink = 0.6 oz pur e alcohol) weekends PHQ-2 Answer Date Recorded Retired PHQ-9: Brief Depression Severity Measure Score 0 03/21/2023 Abuse Screen Answer Date Recorded Unsafe at Home or Work/School Not on file Feels Threatened by Someone? Not on file 04/2024 Does Anyone Keep You from Co ntacting Others or Doint Things Outside the Home? Not on file 03/21/2024 Physical Sign of Abuse Present Not on file 0 03/21/2024 Housing Stability Answer Date Recorded Current Living Arrangements Not on file 04/2023 Potentially Unsafe Housing Conditions Not on gladys e 05/21/2023 Family and Community Support Answer Calvin e Recorded Help with Day-to-Day Activities Not on file 05/21/2023 Lonely or Isolated Not on file 05/21/2023 Employment Answer Date Recorded Do you want help finding or keeping work or a aury b? Not on file 05/21/2023 Disabilities Answer Date Recorded Concentrating, Remembering, or Making Decisions Difficulty Not on file 05/21/2023 Doing Errands Independently Difficulty Not on fi le 05/21/2023 Education Answer Date Recorded Help with school or training? 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 Not on file Not on file Last Filed Vital Signs Vital Sign Reading Time Taken Comments Blood Pressure 152/92 03/21/2023 8:11 AM EDT Pulse 72 03/21/2023 8:11 AM EDT Temperature 36.7 C (98 F) 03/21/2023 8:11 AM EDT Respiratory Rate 16 03/21/2023 8:11 AM EDT Oxygen Saturation 98% 03/21/2023 8:11 AM EDT Inhaled Oxygen Concentration - - Weight 66 kg (145 lb 6.4 oz) 03/21/2023 8:11 AM EDT Height 152.4 cm (5') 03/21/2023 8:11 AM EDT new height Body Mass Index 28.4 03/21/2023 8:11 AM EDT Plan of Treatment Health Maintenance Due Date Last Done Comments Annual Gynecologic Pelvic and Breast Exam 1970 TDAP/TD VACCINES (1 - Tdap) 1989 MAMMOGRAM 2010 COLOGUARD 2015 COLON CANCER SCREENING 5 YEAR SIGMOIDOSCOPY 2015 COLONOSCOPY [address] CANCER SCREENING 2015 CT COLONOGRAPHY 2015 FECAL OCCULT BLOOD TEST 2015 FIT Testing (1 year) 2015 ANNUAL PHYSICAL 06/12/2016 Pneumococcal Vaccine 50+ (1 of 1 - PCV) 2020 ZOSTER VACCINE (1 of 2) 2020 COVID-19 Vaccine (2 - season) 04/13/202409/2020 INFLUENZA VACCINE 05/13/2025 HEPATITIS C SCREENING Completed 06/09/2019 Procedures Procedure Name Priority Date/Time Associated Diagnosis Comments HEPATITIS PANEL, ACUTE Routine 06/09/2019 5:04 PM EDT Thrombocytopenia from Last 3 Months or Most Recently Relevant to Health Maintenance Results * Hepatitis Panel, Acute (06/09/2019 5:04 PM EDT) Hepatitis B Surface Ag Non-Reacti ve Non-Reacti ve 06/09/2019 5:57 PM EDT [facility] Hep A IgM Non-Reacti ve Non-Reacti ve 06/09/2019 5:57 PM EDT [facility] Hep B C IgM Non-Reacti ve Non-Reacti ve 06/09/2019 5:57 PM EDT [facility] Hepatitis C Ab Non-Reacti ve Non-Reacti ve 06/09/2019 5:57 PM EDT [facility] Blood Venipuncture / Unknown 06/09/2019 5:04 PM EDT 06/09/2019 5:04 PM EDT Vinod Mcgee MD LAB BLOOD ORDERABLES Final Result [facility]
[address] [place] [address], [place] [phone] from Last 3 Months or Most Recently Relevant to Health Maintenance Insurance [employer] Care Teams Business Management Intern Relationship Specialty Start Date End Date Sharita López PA [address] [place] [address] PCP - General Physician Psychologist Engineering 02/12/20
--- OUTSIDE RECORDS SUMMARY | 2025-03-10 11:59 | XMS_ITS | Patient Health Record ---
Author Organization [facility] Address [address] [place] [id number] Care Team Providers Care Groundman Name Role Phone Kandis Rodney Primary Care Provider [phone] DorianSharita silvestre Unavailable [phone] Allergies No Known Allergies Results Component Value Reference Range Notes CBC Venipuncture (in house) (Not yet reviewed by provider) Interpretation: Performing Lab: Notes/Report: wbc 8.1 3.5 - 10 lymph 31.3 15 - 50 mid 6.4 2 - 15 gran 62.3 35 - 80 rbc 4.33 3.5 - 5.5 hgb 14.0 11.5 - 16.5 hct 40.6 35 - 55 mcv 93.9 75 - 100 mch 32.3 25 - 35 mchc 34.4 31 - 38 platlet 8 100 - 400 Urinalysis - Inhouse Reviewed date:06/02/2024 02:55:34 PM Interpretation: Performing Lab: Notes/Report: Color/Clarity yellow/cloudy Leuk neg Nitrite neg Urobili 3.2 Protein neg pH 5.5 Blood neg Sp. Gr. 1.030 Ketone 1+ Bili neg Gluc neg Rapid Strep- Inhouse Reviewed date:12/11/2024 08:22:52 AM [...] - 38 plat 14 100 - 400 Mammogram Reviewed date:04/01/2024 12:18:17 PM Interpretation:Negative, annual f/u Performing Lab: Notes/Report: Negative, annual f/u result Negative, annual f/u P-CBC with Diff plus Absolut e Counts Reviewed date:06/09/2024 09:57:31 AM Interpretation:plat 15 Performing Lab: Notes/Report: Test performed by [facility] , [address], [place] [address] Corey Sifuentes MD, [place] Hammerer CLIA: [id number] WBC 8.5 3.8-11.5 K/uL Red Blood Cell Count (RBC) 4.60 3.60-5.30 M/mm3 Hemoglobin (Hgb) 14.8 11.5-15.5 gm/dL Hematocrit (HCT) 43.5 35.2-46.4 % MCV 94.6 79.0-99.0 fL MCH 32.2 26.9-35.0 pg MCHC 34.0 30.4-34.8 g/dL RDW 42.6 38.6-53.8 fL Platelet Count 15 137-397 K/cumm Critical [facility], results confirmed. Neutrophils Automated 47.1 41.0-77.0 % Lymphocytes Automated 35.1 14.0-48.0 % Monocytes Automated 10.1 4.0-13.0 % Eosinophils Automated 2.6 0.0-8.0 % Basophils Automated 0.9 0.0-1.5 % Immature Granulocyte Automated 4.2 0.0-1.0 % Immature Granulocytes may be falsely elevated due to cellular degeneration and/or debris. This is typically seen when specimen handling, transport, and/or storage issues occur prior to testing of the specimen(s) (the preanalytical phase). Absolute Neutrophil Count 4.0 2.0-8.2 K/uL Absolute Lymphocyte Count 3.0 0.9-3.6 K/uL Absolute Monocyte Count 0.9 0.3-1.0 K/uL Absolute Eosinophil Count 0.2 0.0-0.6 K/uL Absolute Basophil Count 0.1 0.0-0.1 K/uL Absolute Immature Granulocyte 0.36 0.00-0.03 K/uL P-Comprehensive Metabolic Pa arturo (CMP) Reviewed date:06/09/2024 09:59:20 AM Interpretation:Normal Performing Lab: Notes/Report: Test performed by [facility] [address] [place] [address] , [address], [place] [address] Corey Sifuentes MD, [place]merer CLIA: [id number] Sodium 142 135-145 mmol/L Potassium 4.3 3.5-5.3 mmol/L Chloride 105 97-108 mmol/L CO2 27 22-32 mmol/L Glucose 84 65-99 mg/dL BUN 10 6-20 mg/dL Creatinine 0.56 0.50-1.00 mg/dL Calcium 8.6 8.6-10.4 mg/dL eGFR by Creatinine 108 >59 mL/min/1.73m2 Protein 7.1 6.0-8.3 g/dL Albumin 4.3 3.5-5.3 g/dL Alkaline Phosphatase 74 35-121 IU/L ALT (SGPT) 27 <5-47 IU/L AST (SGOT) 35 <5-40 IU/L Bilirubin, Total 0.5 <0.2-1.2 mg/dL A/G Ratio 1.5 1.1-2.5 P-Lipid Panel Reviewed date:06/09/2024 09:58:12 AM Interpretation:Normal Performing Lab: Notes/Report: Test performed by [facility] [address] [place] [address] , [address], [place] [address] Corey Sifuentes MD, [place] Hammerer CLIA: [id number] Cholesterol 171 <200 mg/dL Triglycerides 109 <150 mg/dL HDL Cholesterol 61 >39 mg/dL Cholesterol / HDL Ratio 2.80 0.00-4.44 Ratio Non-HDL Cholesterol 110 <130 mg/dL LDL Cholesterol (Calculation) 88 <130 mg/dL LDL Cholesterol Levels* Less than 100 mg/dL Optimal 100 to 129 mg/dL Near Optimal/ Above Optimal 130 to 159 mg/dL Borderline High 160 to 189 mg/dL High 190 mg/dL and above Very High * Categories as recommended by the 2004 ATPIII guidelines LDL/HDL Ratio 1.4 <3.3 Ratio ____ LDL Cholesterol Patient History ____ Test Date: 07/31/2023 LDL Results: 170 Units: mg/dL % Change: - ---- Test Date: 06/04/2024 LDL Results: 88 Units: mg/dL % Change: -48% ____ P-TSH Reviewed date:06/09/2024 09:57:51 AM Interpretation:Normal 3.45 Performing Lab: Notes/Report: Test performed by [facility] [address] [place], [place] [address] [place] [address] Corey Sifuentes MD, [place] Hammerer CLIA: [id number] TSH 3.45 0.43-5.25 mU/L RBC Morphology, Hematology Reviewed date:06/09/2024 09:58:54 AM Interpretation: Performing Lab: Notes/Report: Test performed by [facility] [address] [place], [place] [address] [place] [address], [place] [address] Corey Sifuentes MD, [place] Hammerer CLIA: [id number] Poikilocytosis Moderate Anisocytosis Slight Platelet Slide Review See Below PLT: Smear reviewed. No platelet clumps observed. Significantly Decreased Reason For Referral No Information Medications Medication SIG (Take, Route, Frequency, Duration) Notes Start Date End Date Status Estradiol 1 MG 1 tablet Orally Once a day; Duration: 90 days Active Rosuvastatin Calcium 5 MG 1 tablet Orally Once a day; Duration: 90 days pt needs appt Active Lisinopril-hydroCHLOROt hiazide 10-12.5 MG 1 tablet Orally Once a day; Duration: 90 days Active Metoprolol Succinate ER 50 MG 1 tablet Orally Once a day; Duration: 90 days Active Zepbound 5 MG/0.5ML 0.5 mL Subcutaneous; Duration: 30 day(s) Active Vitamin D3 1.25 MG (93170 UT) 1 cap(s) orally once a day; Duration: 30 day(s) Active Multivitamin 1 TAB ONCE A DAY Active Biotin 5 MG 1 tablet Orally Once a day Active Vitamin C 500 MG as directed Orally Active Vitamin B12 100 MCG as directed Orally Active Immunizations Vaccine Route Administration Date Status Comme nts COVID 19 Minor Unknown 11/12/2020 Administered Twinrix-Hep A and Hep B Unknown 07/26/2018 Administered Twinrix-Hep A and Hep B Unknown 08/26/2018 Administered Twinrix-Hep A and Hep B Unknown 02/11/2019 Administered Problems Problem Type SNOMED Code ICD Code Onset Dates Problem Status W/U Status Risk Notes Problem Sinusitis (93382973) Sinusitis (J32.9) Active confirmed Problem Hyperlipidemia (94248417) Hyperlipidemia (E78.5) Active confirmed Problem Menorrhagia (880117903) Menorrhagia (N92.0) Active confirmed Problem Anemia (584404086) Anemia (D64.9) Active confir med Problem Essential hypertension (10196405) Essential hypertension (I10) Active confirmed Problem Mixed anxiety and depressive disorder (992661215) Depression with anxiety (F41.8) Active confirmed Problem Thrombocytopenia (468676608) Thrombocytopenia (D69.6) Active confirmed Vital Signs Heart Rate 70 /min 03/10/2025 Blood pressure diastolic 76 mm Hg 03/10/2025 Height 60.50 in 03/10/2025 Blood pressure systolic 122 mm Hg 03/10/2025 Weight 119 lbs 03/10/2025 BMI 22.86 kg/m2 03/10/2025 Encounters Encounter Location Date Provider Diagnosis [facility] [address] [place] [id number] 06/02/2024 Kandis Rodney Ear pain, right H92. 01 ; Cystitis without hematuria N30.90 ; Hyperlipidemia E78.5 and Breast pain N64.4 [facility] [address] [place] [id number] 06/04/2024 Kandis Rodney Essential hypertensi on I10 ; Hyperlipidemia E78.5 ; Depression with anxiety F41.8 and Anemia D64.9 [facility] [address] [place] [id number] 12/10/2024 Sharita López Acute pharyngitis du e to other specified organisms J02.8 ; Other specified bacterial agents as the cause of diseases classified elsewhere B96.89 ; Thrombocytopenia D69.6 and BMI 23.0-23.9, adult Z68.23 [facility] [address] [place] [id number] 03/10/2025 Kandis Rodney Thrombocytopenia D69 .6 ; Essential hypertension I10 ; Hyperlipidemia E78.5 ; Depression with anxiety F41.8 ; Breast cancer screening Z12.39 and Hormone disorder E34.9 [facility] [address] [place] [id number] 06/05/2024 Sharita López Rachel [address] [place] [id number] 12/16/2024 Sharita López Josh [address] [place] [id number] 02/18/2025 Kandis Rodney Assessments Encounter Date Diagnosis (ICD Code) Assessment Notes Treatment Notes Treatment Clinical Notes Section Notes 06/02/2024 Ear pain, right (ICD-10 - H92.01) take med with food will restart Flonase; reviewed how to use; OTC antihistamine 06/02/2024 Cystitis without hematuria (ICD-10 - N30.90) improve water intake; she drinks minimal caffeine; suggested cranberry juice or pills daily 12/10/2024 Other specified bacterial agents as the cause of diseases classified elsewhere (ICD-10 - B96.89) 12/10/2024 Acute pharyngitis due to other specified organisms (ICD-10 - J02.8) 06/04/2024 Essential hypertension (ICD-10 - I10) 03/10/2025 Essential hypertension (ICD-10 - I10) 03/10/2025 Thrombocytopenia (ICD-10 - D69.6) 03/10/2025 Hyperlipidemia (ICD-10 - E78.5) 12/10/2024 Thrombocytopenia (ICD-10 - D69.6) Gave number to contact Dr. Silverman's office as referral has already been made. 06/04/2024 Hyperlipidemia (ICD-10 - E78.5) 06/02/2024 Hyperlipidemia (ICD-10 - E78.5) will RTC fasting for LIPIDS 06/02/2024 Breast pain (ICD-10 - N64.4) Estradiol has really helped her hot flushes and discomfort with SI; will try decrease to 0.5 mg daily 12/10/2024 BMI 23.0-23.9, adult (ICD-10 - Z68.23) 03/10/2025 Depression with anxiety (ICD-10 - F41.8) 06/04/2024 Depression with anxiety (ICD-10 - F41.8) 03/10/2025 Breast cancer screening (ICD-10 - Z12.39) 06/04/2024 Anemia (ICD-10 - D64.9) 03/10/2025 Hormone disorder (ICD-10 - E34.9) 06/02/2024 Other will RTC for fasting labs to include CBC, LIPIDS, CMP, TSH Plan Of Treatment Pending Test Test Name Order Date CBC Venipuncture (in house) 03/10/2025 Mammogram 03/10/2025 P-Comprehensive Metabolic Panel (CMP) P-Lipid Panel 03/10/2025 Insurance Providers Payer Name Payer Address Payer Phone Subscriber Number Group Number Insured Name Patient Relationship to Insured Coverage Start Date Coverage End Date [employer] [address] [place] [address] [id number] [place] AC Self - patient is the insured Medications Administered Medication Instructions Date of Administration Dosage Notes Dexamethasone 07/10/2018 1 mL Medical (General) History Medical History History ICD Code duodenitis gastritis uterine fibroids celiac disease thrombocytopenia Surgical History Surgery Date(Month/Year) tonsilectomy 1990 1999
[2025-03-10 12:18] VITALS: BMI 22.4
[2025-03-10 12:47] LABS: Platelet Count 14 K/mm3 (142-424)
--- NOTE | 2025-03-10 15:13 | PC.NURSE ---
1234 Type and Cross for platelets collected per labview programmer at this time. Platelets will be available tomorrow morning 03/11/25 for transfusion. Patient verbalizes understanding to return tomorrow am for transfusion of one unit of platelets as ordered/blood band intact upon patient discharge/patient verbalizes understanding to leave blood band in place and not remove.
== END 2025-03-10 12:40 | disposition home or self-care (01) ==
LOC: INF 11:57
PROVIDERS: PCP Physician Assistant; Visit Provider Nurse Practitioner Family
DX: D69.6 Thrombocytopenia, unspecified (principal)
CPT/HCPCS: 36415; 85049; 86900; 86901

== ENCOUNTER 2025-03-11 09:00 | Outpatient (CLI) | payer BC, SELFPAY ==
--- OUTSIDE RECORDS SUMMARY | 2024-12-10 10:15 | XMS_ITS ---
[facility] Address [address] [place] [phone] Care Team Providers Care Gas Manager Name Role Phone Kandis Rodney Primary Care Provider DorianSharita silvestre Unavailable [phone] Allergies No Known Allergies Results Component Value [...] A DAY Active Vitamin D3 1.25 MG (06416 UT) 1 cap(s) orally once a day; [...] 12/10/2024 Encounters Encounter Location Date Provider Diagnosis [facility] [address] [place], [place] [phone] 12/10/2024 Sharita López Acute pharyngitis du e [...] Notes * MARA ACHOMEOB:1970 (54 yo F)Acc No.[id number]:12/10/2024 Progress Notes Patient: CORETTA SENA Provider: PATRICIA Olvera DOB:1970 A ge:54 Y S ex:Female Date:12/10/2024 Address:[address] [place] [address] [id number] Pcp:Kandis Rodney Subjective: * Chief Complaints: * [...] DAY , Taking Vitamin D3 1.25 MG (38858 UT) Capsule 1 cap(s) orally once a [...] T hrombocytopenia - D69.6 4 . B [place] 23.0-23.9, adult - Z68.23 Plan: * Treatment: [...] STREP A ASSAY W/OPTIC, Modifiers: QW , 23025 CAPILLARY BLOOD DRAW, 05821 CBC WITH AUTO DIFF * Follow Up: p rn * Images: Billing Information: * Visit Code: 89270 Office Visit, Est Pt., Level 3. * Procedure Codes: 22151 STREP A ASSAY W/OPTIC. Modifiers: QW 96167 CAPILLARY BLOOD DRAW. 57218 CBC WITH AUTO DIFF. * Electronic signature of PATRICIA Puga on 03/11/2025 at 09:05 AM EDT Sign off status: Pending * Provider: PATRICIA Olvera Date: 12/10/2024 Generated for Aldai ng/Faxing/eTransmitting on: 03/11/2025 09:05 AM EDT History and Physical Notes * [...]
--- OUTSIDE RECORDS SUMMARY | 2025-03-04 05:30 | XMS_ITS ---
Author Organization [facility] Address [address] [facility] [address] [place] [phone] Care Team Providers Care Aircraft Shipping Checker Name Role Phone Kandis Rodney Primary Care Provider Sharita López [phone] REASON FOR VISIT check up, Needs labs, mammogram due in March, Tdap, & shingles vaccine Encounters Encounter Location Date Provider Diagnosis [facility] [address] [place] [phone] 03/04/2025 Sharita López Plan Of Treatment No Information Progress Notes * HAYDEN ACOB:1970 (54 yo F)Acc No.[id number]:03/04/2025 Progress Notes Patient: CORETTA SENA Provider: PATRICIA Olvera :1970 A ge:54 Y S ex:Female Date:03/04/2025 Address:[address] [facility] [place], [id number] Pcp:Kandis Rodney Subjective: * Chief Complaints: * [...] 03/04/2025 Generated for Tamar bledsoe/Lb/Vitaliy on: 0 03/11/2025 09:05 AM EDT
--- OUTSIDE RECORDS SUMMARY | 2025-03-10 06:00 | XMS_ITS ---
[facility] Organization [facility] Address [address] [place] [id number] Care Team Providers Care Box Hinge And Lock Attacher Name Role Phone Kandis Rodney Primary Care Provider Allergies No Known Allergies Results Component Value Reference Range Notes P-Comprehensive Metabolic Pa arturo (CMP) (Not yet reviewed by provider) Interpretation:normal Performing Lab: Notes/Report: Test performed by [facility] [address] [place], [place] [address] [place] , [address], [place] [address] Corey Sifuentes MD, Electrical Controls Engineer CLIA: [id number] Sodium 139 135-145 mmol/L Potassium 3.7 3.5-5.3 mmol/L Chloride 103 97-108 mmol/L CO2 25 20-32 mmol/L Glucose 89 65-99 mg/dL BUN 10 6-20 mg/dL Creatinine 0.58 0.50-1.00 mg/dL Calcium 8.8 8.6-10.4 mg/dL eGFR by Creatinine 107 >59 mL/min/1.73m2 Protein 6.6 6.0-8.3 g/dL Albumin 4.1 3.5-5.3 g/dL Alkaline Phosphatase 69 35-121 IU/L ALT (SGPT) 26 <5-47 IU/L AST (SGOT) 34 <5-40 IU/L Bilirubin, Total 0.3 <0.2-1.2 mg/dL A/G Ratio 1.6 1.1-2.5 P-Lipid Panel (Not yet revie wed by provider) Interpretation:LDL 101; HDL 57; tg 99 Performing Lab: Notes/Report: Test performed by [facility] [address] [facility] , [address], [place] [address] Corey Sifuentes MD, Electrical Controls Engineer CLIA: [id number] Cholesterol 178 <200 mg/dL Triglycerides 99 <150 mg/dL HDL Cholesterol 57 >39 mg/dL Cholesterol / HDL Ratio 3.12 0.00-4.44 Ratio Non-HDL Cholesterol 121 <130 mg/dL LDL Cholesterol (Calculation) 101 <130 mg/dL LDL Cholesterol Levels* Less than 100 mg/dL Optimal 100 to 129 mg/dL Near Optimal/ Above Optimal 130 to 159 mg/dL Borderline High 160 to 189 mg/dL High 190 mg/dL and above Very High * Categories as recommended by the 2004 ATPIII guidelines LDL/HDL Ratio 1.8 <3.3 Ratio LDL Cholesterol Patient History Test Date: 07/31/2023 LDL Results: 170 Units: mg/dL % Change: - Test Date: 06/04/2024 LDL Results: 88 Units: mg/dL % Change: -48% Test Date: 03/10/2025 LDL Results: 101 Units: mg/dL % Change: +14% CBC Venipuncture (in house) Reviewed date:03/10/2025 12:18:37 PM Interpretation: Performing Lab: Notes/Report: wbc 8.1 3.5 - 10 lymph 31.3 15 - 50 mid 6.4 2 - 15 gran 62.3 35 - 80 rbc 4.33 3.5 - 5.5 hgb 14.0 11.5 - 16.5 hct 40.6 35 - 55 mcv 93.9 75 - 100 mch 32.3 25 - 35 mchc 34.4 31 - 38 platlet 8 100 - 400 REASON FOR VISIT check up Medications Medication SIG (Take, Route, Frequency, Duration) Notes Start Date End Date Status Rosuvastatin Calcium 5 MG 1 tablet Orally Once a day; Duration: 90 days pt needs appt Active Lisinopril-hydroCHLORO thiazide 10-12.5 MG 1 tablet Orally Once a day; Duration: 90 days Active Metoprolol Succinate ER 50 MG 1 tablet Orally Once a day; Duration: 90 days Active Estradiol 1 MG 1 tablet Orally Once a day; Duration: 90 days Active Zepbound 5 MG/0.5ML 0.5 mL Subcutaneous Active Vitamin D3 1.25 MG (04365 UT) 1 cap(s) orally once a day; Duration: 30 day(s) Active Multivitamin 1 TAB ONCE A DAY Active Biotin 5 MG 1 tablet Orally Once a day Active Vitamin C 500 MG as directed Orally Active Vitamin B12 100 MCG as directed Orally Active Vital Signs Weight 119 lbs 03/10/2025 Blood pressure systolic 122 mm Hg 03/10/20 25 Blood pressure diastolic 76 mm Hg 025 Heart Rate 70 /min 03/10/2025 Height 60.50 in 03/10/2025 BMI 22.86 kg/m2 03/10/2025 Encounters Encounter Location Date Provider Diagnosis [facility] [address] [place] [id number] 03/10/2025 Kandis Rodney Thrombocytopenia D69 .6 ; Essential hypertension I10 ; Hyperlipidemia E78.5 ; Depression with anxiety F41.8 ; Breast cancer screening Z12.39 ; Hormone disorder E34.9 and Encounter for weight loss counseling Z71.3 Assessments Encounter Date Diagnosis (ICD Code) Assessment Notes Treatment Notes Treatment Clinical Notes Section Notes 03/10/2025 Thrombocytopenia (ICD-10 - D69.6) to have plt infusion with office visit plat # of 8; sent to infusion clinic; to have platlets tomorrow and she will have infusion then; discussed with establishing with Hematology, Dr. Wallace, at [facility]; she will further discuss with 03/10/2025 Essential hypertension (ICD-10 - I10) 03/10/2025 Hyperlipidemia (ICD-10 - E78.5) 03/10/2025 Depression with anxiety (ICD-10 - F41.8) 03/10/2025 Breast cancer screening (ICD-10 - Z12.39) 03/10/2025 Hormone disorder (ICD-10 - E34.9) discussed possibly weaning; she has had minimal hot flushes and they are less since the weight loss; needs pap smear as well 03/10/2025 Encounter for weight loss counseling (ICD-10 - Z71.3) she obtains med from an ouside source Plan Of Treatment Medication Medication Name Sig Start Date Stop Date Notes Rosuvastatin Calcium 5 MG 1 tablet Orall y Once a day; Duration: 90 days pt needs appt Lisinopril-hydroCHLOROthi azide 10-12.5 MG 1 tablet Orally Once a day; Duration: 90 days Metoprolol Succinate ER 50 MG 1 tablet Orally Once a day; Duration: 90 days Estradiol 1 MG 1 tablet Orally Once a day; Duration: 90 days Zepbound 5 MG/0.5ML 0.5 mL Subcutaneous Treatment Notes Assessment Notes Thrombocytopenia to have plt infusion with office visit plat # of 8; sent to infusion clinic; to have platlets tomorrow and she will have infusion then; discussed with establishing with Hematology, Dr. Wallace, at [facility]; she will further discuss with Hormone disorder discussed possibly w eaning; she has had minimal hot flushes and they are less since the weight loss; needs pap smear as well Encounter for weight loss counseling she obtains med from an ouside source Pending Test Test Name Order Date Mammogram 03/10/2025 P-Comprehensive Metabolic Panel (CMP) P-Lipid Panel 03/10/2025 Next Appt Details Follow Up: 3 Months, Reason: Progress Notes * HAYDEN ACOB:1970 (54 yo F)Acc No.[id number]:03/10/2025 Progress Notes Patient: CORETTA SENA Provider: SHRUTI Olvera :1970 A ge:54 Y S ex:Female Date:03/10/2025 Address:[address] [place] [address] [place] [facility] Subjective: * Chief Complaints: * 1 . Check up. * HPI: C ardiology: Pt her for a checkup on Hyperlipidemia and Hypertension. Pt states she has no new concerns today. 54 year old female presents with c/o Hyperlipidemia P t is fasting today. Denies : Chest Pain. P sychology: Pt here for a checkup on depression and anxiety. Pt states she has not had no problems. Denies : Anxiety. D enies : depression. H PI: Patient is here today for P t wants to know if we can do a 90 day supply on her meds. D ermatology: petechia on bilateral lower extremeties. pt states she gets this from time to time. * ROS: D ERMATOLOGY: no R isaac. [...] ,Years: , Determination:. * Medications: T aking Biotin 5 MG Tablet 1 tablet Orally Once a day , Taking Vitamin B12 100 MCG Tablet as directed Orally , Taking Vitamin C 500 MG Capsule as directed Orally , Taking Estradiol 1 MG Tablet 1 tablet Orally Once a day , Taking Zepbound 5 MG/0.5ML Solution Auto-injector 0.5 mL Subcutaneous , Taking Multivitamin 1 TAB ONCE A DAY , Taking Vitamin D3 1.25 MG (12518 UT) Capsule 1 cap(s) orally once a day , Taking Rosuvastatin Calcium 5 MG Tablet 1 tablet Orally Once a day , Notes to Pharmacist: pt needs appt, Taking Lisinopril-hydroCHLOROthiazide 10-12.5 MG Tablet 1 tablet Orally Once a day , Taking Metoprolol Succinate ER 50 MG Tablet Extended Release 24 Hour 1 tablet Orally Once a day , Discontinued Medrol 4 MG Tablet Therapy Pack as directed orally daily , Discontinued Align 1 P.O. Q DAY , Discontinued Cefdinir 300 MG Capsule 1 cap(s) Orally Two times a day , Medication List reviewed and reconciled with the patient * Allergies: N .K.D.A. Objective: * Vitals: W t: 119, Temp: 97.7, BP: 122/76, HR: 70, Nurse: pe, Ht: 60.50, BMI:22.86. * Examination: G eneral Examination: General Appearance: N AD, appears healthy, alert, pleasant.?HEENT: n ormal, PERRLA, EOM's with normal ROM, TM's normal. O ral cavity: n ormal, mucosa moist and WNL. N ann: n o lymphadenopathy. H eart: R RR, no murmur. L ungs: n ormal, clear to auscultation. A bdomen: n ormal, bowel sounds present, no organomegaly or masses. N eurologic Exam: a lert and oriented. S kin: p etechiae bilateral lower extremities. P eripheral pulses: n ormal (2+) bilaterally. E xtremities: n o leg edema, petechia present. Assessment: * Assessment: 1. T hrombocytopenia - D69.6 (Primary) 2 . E ssential hypertension - I10? 3. H yperlipidemia - E78.5 4 . D epression with anxiety - F41.8 5 . B reast cancer screening - Z12.39 6 . H ormone disorder - E34.9 7 . E ncounter for weight loss counseling - Z71.3 Plan: * Treatment: Value Reference Range w bc 8.1 3.5 - 10 * l ymph 31.3 15 - 50 * m id 6.4 2 - 15 * g ran 62.3 35 - 80 * r bc 4.33 3.5 - 5.5 * h gb 14.0 11.5 - 16.5 * h ct 40.6 35 - 55 * m cv 93.9 75 - 100 * m ch 32.3 25 - 35 * m chc 34.4 31 - 38 * p latlet 8 100 - 400 * Jill Alvarez 03/10/2025 1 1:15:16 AM EDT > Provider reviewed results while patient in office.Kandis Rodney 03/10/2025 12:17:43 PM EDT >discussed with pt while in the office; to have Platelet infusion Notes: to have plt infusion with office visit plat # of 8; sent to infusion clinic; to have platlets tomorrow and she will have infusion then; discussed with establishing with Hematology, Dr. Wallace, at [facility]; she will further discuss with ??2.?Essential hypertension? Refill Lisinopril-hydroCHLOROthiazide Tablet, 10-12.5 MG, 1 tablet, Orally, Once a day, 90 days, 90, Refills 1;?Refill Metoprolol Succinate ER Tablet Extended Release 24 Hour, 50 MG, 1 tablet, Orally, Once a day, 90 days, 90, Refills 1.?LAB: P-Comprehensive Metabolic Panel (CMP) (Collection Date & Time - 03/10/2025 10:01 AM)?normal* Value Reference Range A /G Ratio 1.6 1.1-2.5 - * A lbumin 4.1 3.5-5.3 - g/dL * A lkaline Phosphatase 69 35-121 - IU/L * A LT (SGPT) 26 <5-47 - IU/L * A ST (SGOT) 34 <5-40 - IU/L * B ilirubin, Total 0.3 <0.2-1.2 - mg/dL * B UN 10 6-20 - mg/dL * C alcium 8.8 8.6-10.4 - mg/dL * C hloride 103 97-108 - mmol/L * C O2 25 20-32 - mmol/L * C reatinine 0.58 0.50-1.00 - mg/dL * G lucose 89 65-99 - mg/dL * P otassium 3.7 3.5-5.3 - mmol/L * S odium 139 135-145 - mmol/L * P rotein 6.6 6.0-8.3 - g/dL * e GFR by Creatinine 107 >59 - mL/min/1.73m2 3.?Hyperlipidemia? Refill Rosuvastatin Calcium Tablet, 5 MG, 1 tablet, Orally, Once a day, 90 days, 90, Refills 1, Notes to Pharmacist: pt needs appt.?LAB: P-Lipid Panel (Collection Date & Time - 03/10/2025 10:01 AM)?LDL 101; HDL 57; tg 99* Value Reference Range C holesterol / HDL Ratio 3.12 0.00-4.44 - Ratio * C holesterol 178 <200 - mg/dL * H DL Cholesterol 57 >39 - mg/dL * L DL Cholesterol (Calculation) 101 <130 - mg/d L * L DL/HDL Ratio 1.8 <3.3 - Ratio * N on-HDL Cholesterol 121 <130 - mg/dL * T riglycerides 99 <150 - mg/dL 4.?Breast cancer screening?Imaging: Mammogram* Ivon Durbin 03/10/2025 10:5 6:18 AM EDT > faxed to [facility] Scheduling 5.?Hormone disorder? Refill Estradiol Tablet, 1 MG, 1 tablet, Orally, Once a day, 90 days, 90, Refills 1.?? Notes: discussed possibly weaning; she has had minimal hot flushes and they are less since the weight loss; needs pap smear as well??6.?Encounter for weight loss counseling? Continue Zepbound Solution Auto-injector, 5 MG/0.5ML, 0.5 mL, Subcutaneous.?? Notes: she obtains med from an ouside source?? * Procedure Codes: 8 5025 CBC WITH AUTO DIFF, 23925 VENIPUNCT, ROUTINE* * Follow Up: 3 Months * Images: Billing Information: * Visit Code: 65571 Office Visit, Est Pt., Level 4. * Procedure Codes: 66170 CBC WITH AUTO DIFF. 53110 VENIPUNCT, ROUTINE*. * Electronic signature of Holly Rodney APRN on 03/11/2025 at 09:06 AM EDT Sign off status: Pending * Provider: SHRUTI Olvera Date: 03/10/2025 Generated for Tamar bledsoe/Lb/Vitaliy on: 03/11/2025 09:06 AM EDT History and Physical Notes * HPI (History of Present Illness) Category Sub-Category Detail Notes Category Not es Cardiology Chest Pain Hyperlipidemia Pt is fasting today Psychology Anxiety depression HPI Patient is here today for Pt wan ts to know if we can do a 90 day supply on her meds Examination Category Sub-Category Detail Notes Category Not es General Examination HEENT: normal, PERR LA, EOM's with normal ROM, TM's normal Heart: RRR, no murmur Lungs: normal, clear to aus cultation Abdomen: normal, bowel sounds present, no organomegaly or masses Extremities: no leg edema, petech ia present General Appearance: NAD, appears healthy , alert, pleasant Skin: petechiae bilateral lower extremities Neurologic Exam: alert and oriented Neck: no lymphadenopathy Oral cavity: normal, mucosa moist and WNL Peripheral pulses: normal (2+) bilatera lly
[2025-03-11] VITALS (7 sets, daily range): BP systolic 102–117; BP diastolic 62–72; PULSE 72–76; RESP 20; TEMP 36.4–36.7; O2SAT 98–99
--- OUTSIDE RECORDS SUMMARY | 2025-03-11 09:06 | XMS_ITS | Encounter Summary ---
Author Organization [facility] Address [address] [place] [address] Care Team Providers Care Electronics Scale Tester Name Role Phone Sharita López Primary Care Provider [phone] Encounter Details Date Type Department Care Team (Late st Contact Info) Description 12/29/2011 Conversion Encounter [facility] [address] [place] [address] Interface, See Report Social History [...] Naveen Owens M.D. ' Rima Elizabeth APRN [facility], [address] [place] [address] [facility] OFF[facility] NOTE CORETTA LEROY : 1970 DATE [...] plan. Naveen Owens M.D.* FB/rxalw Doc. ID [id number] Rev. #0 cc: Dr. Espinoza [place], [place] Page 3 of 3 Page 1 of 3 Authenticated by NAVEEN OWENS MD On 01/16/2012 10:35:19 AM documented in this encounter Plan of Treatment Not on file documented as of this encounter Visit Diagnoses Not on filedocumented in this encounter Care Teams Electronics Scale Tester Relationship Specialty Start Date End Date Sharita López PA [address] [address] [place] [address] PCP - General Physician Covered Buckle Assembler 02/12/20 documented as of this encounter
--- OUTSIDE RECORDS SUMMARY | 2025-03-11 09:06 | XMS_ITS | Patient Health Record ---
Author Organization [facility] Address [address] [place] [id number] Care Team Providers Care Mica Patcher Name Role Phone Kandis Rodney Primary Care Provider [phone] DorianSharita silvestre Unavailable [phone] Allergies No Known Allergies Results Component Value Reference Range Notes P-Comprehensive Metabolic Pa arturo (CMP) (Not yet reviewed by provider) Interpretation:normal Performing Lab: Notes/Report: Test performed by [facility] [facility] , [address], [place] [address] Corey Sifuentes MD, Contact Center Analyst CLIA: [id number] Sodium 139 135-145 mmol/L Potassium 3.7 3.5-5.3 [...] 99 Performing Lab: Notes/Report: Test performed by [facility] [address] [facility] , [address], [place] [address] Corey Sifuentes MD, Contact Center Analyst CLIA: [id number] Cholesterol 178 <200 mg/dL Triglycerides 99 <150 [...] ATPIII guidelines LDL/HDL Ratio 1.8 <3.3 Ratio ____ LDL Cholesterol Patient History ____ Test Date: 07/31/2023 LDL Results: 170 Units: mg/dL % Change: - ---- Test Date: 06/04/2024 LDL Results: 88 Units: mg/dL % Change: -48% ---- Test Date: 03/10/2025 LDL Results: 101 Units: mg/dL % Change: +14% ____ CBC Venipuncture (in house) Reviewed date:03/10/2025 12:18:37 [...] - 38 platlet 8 100 - 400 H-Platelet (Not yet reviewed by provider) Interpretation: Performing Lab: Notes/Report: PLT 14 142-424 K/mm3 CRITICAL RESULT Results called and read back/verified to: Monie COCHRAN on 03/10/25 at 1246 By Lashawn Cage H-ABO/RH Type (Not yet revie wed by provider) Interpretation: Performing Lab: Notes/Report: Special Requirements: None FFP/Platelet Product Order Reason: TTP BT A Positive CBC Fingerstick (in house) Reviewed date:12/11/2024 08:22:52 [...] - 38 plat 14 100 - 400 Rapid Strep- Inhouse Reviewed date:12/11/2024 08:22:52 AM Interpretation: Performing Lab: Notes/Report: strep test Neg RBC Morphology, Hematology Reviewed date:06/09/2024 09:58:54 AM Interpretation: Performing Lab: Notes/Report: Test performed by [facility] [address] , [address], [place] [address] Corey Sifuentes MD, Contact Center Analyst CLIA: [id number] Poikilocytosis Moderate Anisocytosis Slight Platelet Slide Review See Below PLT: Smear reviewed. No platelet clumps observed. Significantly Decreased P-TSH Reviewed date:06/09/2024 09:57:51 AM Interpretation:Normal 3.45 Performing Lab: Notes/Report: Test performed by [facility] , [address], [place] [address] Corey Sifuentes MD, Contact Center Analyst CLIA: [id number] TSH 3.45 0.43-5.25 mU/L P-Lipid Panel Reviewed date:06/09/2024 09:58:12 AM Interpretation:Normal Performing Lab: Notes/Report: Test performed by [facility] [address] , [address], [place] [address] Corey Sifuentes MD, Contact Center Analyst CLIA: [id number] Cholesterol 171 <200 mg/dL Triglycerides 109 <150 [...] 88 Units: mg/dL % Change: -48% ____ P-Comprehensive Metabolic Pa arturo (CMP) Reviewed date:06/09/2024 09:59:20 AM Interpretation:Normal Performing Lab: Notes/Report: Test performed by [facility] [facility] , [address], [place] [address] Corey Sifuentes MD, Contact Center Analyst CLIA: [id number] Sodium 142 135-145 mmol/L Potassium 4.3 3.5-5.3 [...] 0.5 <0.2-1.2 mg/dL A/G Ratio 1.5 1.1-2.5 P-CBC with Diff plus Absolut e Counts Reviewed date:06/09/2024 09:57:31 AM Interpretation:plat 15 Performing Lab: Notes/Report: Test performed by [facility] [address] , [address], [place] [address] Corey Sifuentes MD, Contact Center Analyst CLIA: [id number] WBC 8.5 3.8-11.5 K/uL Red Blood Cell Count (RBC) 4.60 3.60-5.30 M/mm3 Hemoglobin (Hgb) 14.8 11.5-15.5 gm/dL Hematocrit (HCT) 43.5 35.2-46.4 % MCV 94.6 79.0-99.0 fL MCH 32.2 26.9-35.0 pg MCHC 34.0 30.4-34.8 g/dL RDW 42.6 38.6-53.8 fL Platelet Count 15 137-397 K/cumm Critical va lue, results confirmed. Neutrophils Automated 47.1 41.0-77.0 % [...] K/uL Absolute Immature Granulocyte 0.36 0.00-0.03 K/uL Urinalysis - Inhouse Reviewed date:06/02/2024 02:55:34 PM Interpretation: Performing Lab: Notes/Report: Color/Clarity yellow/cloudy Leuk neg Nitrite neg Urobili 3.2 Protein neg pH 5.5 Blood neg Sp. Gr. 1.030 Ketone 1+ Bili neg Gluc neg Mammogram Reviewed date:04/01/2024 12:18:17 PM Interpretation:Negative, annual f/u Performing Lab: Notes/Report: Negative, annual f/u result Negative, annual f/u Reason For Referral No Information Medications Medication [...] Zepbound 5 MG/0.5ML 0.5 mL Subcutaneous Active Metoprolol Succinate ER 50 MG 1 tablet Orally Once a day; Duration: 90 days Active Vitamin D3 1.25 MG (62928 UT) 1 cap(s) orally once a day; [...] Status W/U Status Risk Notes Problem Sinusitis (24230793) Sinusitis (J32.9) Active confirmed Problem Hyperlipidemia (48815889) Hyperlipidemia (E78.5) Active confirmed Problem Menorrhagia (385025310) Menorrhagia (N92.0) Active confirmed Problem Anemia (275098596) Anemia (D64.9) Active confir med Problem Essential hypertension (21961344) Essential hypertension (I10) Active confirmed Problem Mixed anxiety and depressive disorder (117515688) Depression with anxiety (F41.8) Active confirmed Problem Thrombocytopenia (787785501) Thrombocytopenia (D69.6) Active confirmed Vital Signs Heart Rate 70 /min 03/10/2025 Blood pressure diastolic 76 mm Hg 03/10/2025 Height 60.50 in 03/10/2025 Blood pressure systolic 122 mm Hg 03/10/2025 Weight 119 lbs 03/10/2025 BMI 22.86 kg/m2 03/10/2025 Encounters Encounter Location Date Provider Diagnosis Rachel [address] [place] [id number] 06/02/2024 Kandis Rodney Ear pain, right H92. 01 ; Cystitis without hematuria N30.90 ; Hyperlipidemia E78.5 and Breast pain N64.4 Josh [address] [place] [id number] 06/04/2024 Kandis Rodney Essential hypertensi on I10 ; Hyperlipidemia E78.5 ; Depression with anxiety F41.8 and Anemia D64.9 Josh [address] [place] [id number] 12/10/2024 Sharita López Acute pharyngitis du e to other specified organisms J02.8 ; Other specified bacterial agents as the cause of diseases classified elsewhere B96.89 ; Thrombocytopenia D69.6 and BMI 23.0-23.9, adult Z68.23 [facility] [address] [place] [id number] 03/10/2025 Kandis Rodney Thrombocytopenia D69 .6 ; Essential hypertension I10 ; Hyperlipidemia E78.5 ; Depression with anxiety F41.8 ; Breast cancer screening Z12.39 ; Hormone disorder E34.9 and Encounter for weight loss counseling Z71.3 Josh [address] [place] [id number] 06/05/2024 Sharita López Josh [address] [place] [id number] 12/16/2024 Sharita López Rachel [address] [place] [id number] 02/18/2025 Kandis Rodney Assessments Encounter Date Diagnosis [...] - I10) 03/10/2025 Thrombocytopenia (ICD-10 - D69.6) to have plt infusion with office visit plat # of 8; sent to infusion clinic; to have platlets tomorrow and she will have infusion then; discussed with establishing with Hematology, Dr. Wallace, at [facility]; she will further discuss with 03/10/2025 Hyperlipidemia (ICD-10 - E78.5) 12/10/2024 Thrombocytopenia [...] D64.9) 03/10/2025 Hormone disorder (ICD-10 - E34.9) discussed possibly weaning; she has had minimal hot flushes and they are less since the weight loss; needs pap smear as well 03/10/2025 Encounter for weight loss counseling (ICD-10 - Z71.3) she obtains med from an ouside source 06/02/2024 Other will RTC for fasting labs to include CBC, LIPIDS, CMP, TSH Plan Of Treatment Pending Test Test Name Order Date Mammogram 03/10/2025 H-Platelet 03/10/2025 H-ABO/RH Type 03/10/2025 P-Comprehensive Metabolic Panel (CMP) P-Lipid Panel 03/10/2025 Insurance Providers Payer Name Payer Address Payer Phone Subscriber Number Group Number Insured Name Patient Relationship to Insured Coverage Start Date Coverage End Date [employer] [address] [place] [address] [id number] [place] AC Self - patient is the insured Medications Administered Medication Instructions Date of Administration Dosage Notes Dexamethasone 07/10/2018 1 mL Medical (General) History Medical History History ICD Code duodenitis gastritis uterine fibroids celiac disease thrombocytopenia Surgical History Surgery Date(Month/Year) tonsilectomy 1990 1999
--- OUTSIDE RECORDS SUMMARY | 2025-03-11 09:06 | XMS_ITS | Clinical Summary ---
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
[address] [place] [address], [place] [phone] from Last 3 Months or Most Recently Relevant to Health Maintenance Insurance [employer] Care Teams Researcher Relationship Specialty Start Date End Date Sharita López PA [address] [place] [address] PCP - General Physician Early Childhood Associate Teacher 02/12/20
[2025-03-11] MEDS: SODIUM CHLORIDE 0.9% 250ML BAG 250 ML IV (09:22)
== END 2025-03-11 10:30 | disposition home or self-care (01) ==
LOC: INF 09:01
PROVIDERS: PCP Physician Assistant; Visit Provider Nurse Practitioner Family
DX: D69.6 Thrombocytopenia, unspecified (principal)
CPT/HCPCS: 36430; J7050; P9034

== ENCOUNTER 2025-03-30 07:50 | Outpatient (CLI) | payer BC, SELFPAY ==
--- OUTSIDE RECORDS SUMMARY | 2024-12-10 10:15 | XMS_ITS ---
Author Organization [facility] Address [address] [place] [phone] Care Team Providers Care Ticket Taker Ferryboat Name Role Phone Kandis Rodney Primary Care Provider DorianSharita silvestre Unavailable [phone] Allergies No Known Allergies Results Component Value Reference Range Notes Rapid Strep- Inhouse Reviewed date:12/11/2024 08:22:52 AM Interpretation: Performing Lab: Notes/Report: strep test Neg CBC Fingerstick (in house) Reviewed date:12/11/2024 08:22:52 AM Interpretation: Performing Lab: Notes/Report: wbc 15.0 3.5 - 10 lym 17.8% 15 - 50 mid 4.5% 2 - 15 gran 77.7% 35 - 80 rbc 4.43 3.5 - 5.5 hgb 14.3 11.5 - 16.5 hct 42.2 35 - 55 mcv 95.2 75 - 100 mch 32.4 25 - 35 mchc 34.0 31 - 38 plat 14 100 - 400 REASON FOR VISIT Throat swollen Medications Medication SIG (Take, Route, Frequency, Duration) Notes Start Date End Date Status Metoprolol Succinate ER 50 MG TAKE 1 TABLET BY MOUTH ONCE DAILY; Duration: 90 Active Rosuvastatin Calcium 5 MG 1 tablet Orall y Once a day; Duration: 15 days Active Align 1 P.O. Q DAY Active Lisinopril-hydroCHLOROthiaz evelin 10-12.5 MG TAKE 1 TABLET BY MOUTH DAILY FOR 15 DAYS; Duration: 15 Active Cefdinir 300 MG 1 cap(s) Orally Two times a day; Duration: 10 day(s) 12/10/2024 Active Multivitamin 1 TAB ONCE A DAY Active Vitamin D3 1.25 MG (30605 UT) 1 cap(s) orally once a day; Duration: 30 day(s) Active Estradiol 1 MG 1 tablet Orally Once a day; Duration: 30 day(s) Active Zepbound 5 MG/0.5ML 0.5 mL Subcutaneous; Duration: 30 day(s) Active Vital Signs Weight 122.8 lbs 12/10/2024 Blood pressure systolic 130 mm Hg 12/11/19 25 Blood pressure diastolic 90 mm Hg 025 Heart Rate 82 /min 12/10/2024 Height 60.50 in 12/10/2024 BMI 23.59 kg/m2 12/10/2024 Encounters Encounter Location Date Provider Diagnosis [facility] [address] [place], [place] [phone] 12/10/2024 Sharita López Acute pharyngitis du e to other specified organisms J02.8 ; Other specified bacterial agents as the cause of diseases classified elsewhere B96.89 ; Thrombocytopenia D69.6 and BMI 23.0-23.9, adult Z68.23 Assessments Encounter Date Diagnosis (ICD Code) Assessment Notes Treatment Notes Treatment Clinical Notes Section Notes 12/10/2024 Acute pharyngitis due to other specified organisms (ICD-10 - J02.8) 12/10/2024 Other specified bacterial agents as the cause of diseases classified elsewhere (ICD-10 - B96.89) 12/10/2024 Thrombocytopenia (ICD-10 - D69.6) Gave number to contact Dr. Silverman's office as referral has already been made. 12/10/2024 BMI 23.0-23.9, adult (ICD-10 - Z68.23) Plan Of Treatment Medication Medication Name Sig Start Date Stop Date Notes Cefdinir 300 MG 1 cap(s) Orally Two times a day; Duration: 10 day(s) 12/10/2024 Treatment Notes Assessment Notes Thrombocytopenia Gave number to conta ct Dr. Silverman's office as referral has already been made. Next Appt Details Follow Up: prn, Reason: Progress Notes * MARA ACHOMEOB:1970 (54 yo F)Acc No.[id number]:12/10/2024 Progress Notes Patient: CORETTA SENA Provider: PATRICIA Olvera DOB:1970 A ge:54 Y S ex:Female Date:12/10/2024 Address:[address] [place] [address] [id number] Pcp:Kandis Rodney Subjective: * Chief Complaints: * 1 . Throat swollen. * HPI: E NT/respiratory: The pt states she woke up this morning with sore throat. Pt states she has now started with a dry cough and runny nose. 54 year old female presents with c/o sore throat. c/o cough d ry without any sputum production. c/o rhinorrhea. * ROS: D ERMATOLOGY: no R isaac. n o H erasmo. G ASTROENTEROLOGY: no N ausea. n o V omiting. n o D iarrhea.? U ROLOGY: no D ifficulty urinating. n o B lood in urine. * Medical History: D uodenitis, Gastritis, Uterine fibroids, Celiac disease, Thrombocytopenia. * Surgical History: t onsilectomy , 1990, 1999. * Family History: F ather: alive 68 yrs, heart attack X 3. M other: alive 65 yrs, DM II. 2 son(s) . .? * Social History: C URRENT TOBACCO USE: No . C affeine: yes, frequency:. Home smoke detector use: yes. Alcohol: Yes, Type: mixed drink 8 times a week , Frequency: ,Years: , Determination:. * Medications: T aking Estradiol 1 MG Tablet 1 tablet Orally Once a day , Taking Zepbound 5 MG/0.5ML Solution Auto-injector 0.5 mL Subcutaneous , Taking Multivitamin 1 TAB ONCE A DAY , Taking Vitamin D3 1.25 MG (98165 UT) Capsule 1 cap(s) orally once a day , Taking Align 1 P.O. Q DAY , Taking Metoprolol Succinate ER 50 MG Tablet Extended Release 24 Hour TAKE 1 TABLET BY MOUTH ONCE DAILY , Taking Rosuvastatin Calcium 5 MG Tablet 1 tablet Orally Once a day , Taking Lisinopril-hydroCHLOROthiazide 10-12.5 MG Tablet TAKE 1 TABLET BY MOUTH DAILY FOR 15 DAYS , Medication List reviewed and reconciled with the patient * Allergies: N .K.D.A. Objective: * Vitals: W t: 122.8, Temp: 98.1, BP: 130/90, HR: 82, Nurse: AVERY, Ht: 60.50, BMI:23.59. * Examination: E NT/Respiratory: General Appearance: N AD. E ars: a uditory canals normal bilaterally, TM's WNL. N ose : n ormal, no lesions, nares patent. O ral cavity :? erythema without exudate on pharynx. N ann : supple, bilateral tender lymphadenopathy. H eart : R RR, normal S1 S2, no murmurs. L ungs: c lear to auscultation bilaterally. Assessment: * Assessment: 1. A cute pharyngitis due to other specified organisms - J02.8 (Primary) 2 .?Other specified bacterial agents as the cause of diseases classified elsewhere - B96.89 ? 3 . T hrombocytopenia - D69.6 4 . B DE 23.0-23.9, adult - Z68.23 Plan: * Treatment: Value Reference Range s trep test Neg * Luann Damon 12/10/2024 02 :27:04 PM > Provider reviewed results while patient in office. ?LAB: CBC Fingerstick (in house) (Collection Date & Time - 12/10/2024)* Value Reference Range w bc 15.0 3.5 - 10 * l ym 17.8% 15 - 50 * m id 4.5% 2 - 15 * g ran 77.7% 35 - 80 * r bc 4.43 3.5 - 5.5 * h gb 14.3 11.5 - 16.5 * h ct 42.2 35 - 55 * m cv 95.2 75 - 100 * m ch 32.4 25 - 35 * m chc 34.0 31 - 38 * p lat 14 100 - 400 * Luann Damon 12/10/2024 02 :30:21 PM > Provider reviewed results while patient in office. 2.?Thrombocytopenia? Notes: Gave number to contact Dr. Silverman's office as referral has already been made.?? * Procedure Codes: 8 7880 STREP A ASSAY W/OPTIC, Modifiers: QW , 49242 CAPILLARY BLOOD DRAW, 59518 CBC WITH AUTO DIFF * Follow Up: p rn * Images: Billing Information: * Visit Code: 97347 Office Visit, Est Pt., Level 3. * Procedure Codes: 90844 STREP A ASSAY W/OPTIC. Modifiers: QW 34975 CAPILLARY BLOOD DRAW. 86183 CBC WITH AUTO DIFF. * Electronic signature of PATRICIA Puga on 03/30/2025 at 07:53 AM EDT Sign off status: Pending * Provider: PATRICIA Olvera Date: 12/10/2024 Generated for Aldai ng/Faxing/eTransmitting on: 03/30/2025 07:53 AM EDT History and Physical Notes * HPI (History of Present Illness) Category Sub-Category Detail Notes Category Not es ENT/respiratory sore throat cough dry without any sput um production rhinorrhea Examination Category Sub-Category Detail Notes Category Not es ENT/Respiratory Oral cavity : erythema without exudate on pharynx Ears: auditory canals norm al bilaterally, TM's WNL Neck : supple, bilateral te nder lymphadenopathy Heart : RRR, normal S1 S2, n o murmurs Lungs: clear to auscultatio n bilaterally General Appearance: NAD Nose : normal, no lesions, nares patent
--- OUTSIDE RECORDS SUMMARY | 2025-03-04 05:30 | XMS_ITS ---
Author Organization [facility] Address [address] [facility] [address] [place] [phone] Care Team Providers Care Pre Planning Advisor Name Role Phone Kandis Rodney Primary Care Provider Sharita López [phone] REASON FOR VISIT check up, Needs labs, mammogram due in March, Tdap, & shingles vaccine Encounters Encounter Location Date Provider Diagnosis [place] [address] [place] [phone] 03/04/2025 Sharita López Plan Of Treatment No Information Progress Notes * HAYDEN ACOB:1970 (54 yo F)Acc No.[id number]:03/04/2025 Progress Notes Patient: CORETTA SENA Provider: PATRICIA Olvera :1970 A ge:54 Y S ex:Female Date:03/04/2025 Address:[address] [facility] [place], [id number] Pcp:Kandis Rodney Subjective: * Chief Complaints: * 1 . Check up. 2. Needs labs, mammogram due in March, Tdap, & shingles vaccine. * Medical History: Objective: * Vitals: Assessment: Plan: * Treatment: * Images: Billing Information: * Visit Code: * Procedure Codes: * Electronic signature of PATRICIA Puga on 03/30/2025 at 07:52 AM EDT Sign off status: Pending * Provider: PATRICIA Olvera Date: 0 03/04/2025 Generated for Tamar bledsoe/Lb/Vitaliy on: 0 03/30/2025 07:52 AM EDT
--- OUTSIDE RECORDS SUMMARY | 2025-03-10 06:00 | XMS_ITS ---
Author Organization [facility] Address [address] [place] [id number] Care Team Providers Care Lab Support Service Tech Name Role Phone Rodney Kandis Primary Care Provider Allergies No Known Allergies Results Component Value Reference Range Notes CBC Venipuncture (in house) Reviewed date:03/10/2025 12:18:37 [...] - 38 platlet 8 100 - 400 P-Comprehensive Metabolic Pa arturo (CMP) Reviewed date:03/12/2025 12:00:57 PM Interpretation:normal Performing Lab: Notes/Report: Test performed by [facility] [address] [place] [address] , [address], [place] [address] Corey Sifuentes MD, Multigraph Operator CLIA: [id number] Sodium 139 135-145 mmol/L Potassium 3.7 3.5-5.3 [...] mg/dL A/G Ratio 1.6 1.1-2.5 P-Lipid Panel Reviewed date:03/12/2025 12:00:30 PM Interpretation:LDL 101; HDL 57; tg 99 Performing Lab: Notes/Report: Test performed by [facility] [address] [place] [address] , [address], [place] [address] Corey Sifuentes MD, Multigraph Operator CLIA: [id number] Cholesterol 178 <200 mg/dL Triglycerides 99 <150 [...] Results: 101 Units: mg/dL % Change: +14% REASON FOR VISIT check up Medications Medication [...] mL Subcutaneous Active Vitamin D3 1.25 MG (77923 UT) 1 cap(s) orally once a day; [...] 03/10/2025 Encounters Encounter Location Date Provider Diagnosis [place] [address] [facility] [address] [place], [place] [id number] 03/10/2025 Kandis Rodney Thrombocytopenia D69 .6 ; [...] with establishing with Hematology, Dr. Wallace, at [facility]; she will further discuss with 03/10/2025 Essential [...] - Z71.3) she obtains med from an [facility] source Plan Of Treatment Medication Medication Name [...] with establishing with Hematology, Dr. Wallace, at [facility]; she will further discuss with Hormone disorder discussed possibly w eaning; she has had minimal hot flushes and they are less since the weight loss; needs pap smear as well Encounter for weight loss counseling she obtains med from an ouside source Pending Test Test Name Order Date Mammogram 03/10/2025 Next Appt Details Follow Up: 3 Months, Reason: Progress Notes * HAYDEN ACOB:1970 (54 yo F)Acc No.[id number]:03/10/2025 Progress Notes Patient: CORETTA SENA Provider: SHRUTI Olvera :1970 A ge:54 Y S ex:Female Date:03/10/2025 Address:[address] [place] [address] [place] [facility] Subjective: * Chief Complaints: * 1 . [...] DAY , Taking Vitamin D3 1.25 MG (66656 UT) Capsule 1 cap(s) orally once a [...] with establishing with Hematology, Dr. Wallace, at [facility]; she will further discuss with ??2.?Essential hypertension? [...] GFR by Creatinine 107 >59 - mL/min/1.73m2 * Kandis Rodney 03/12/2025 12:00:41 PM EDT >I spoke with pt and reported rresults 3.?Hyperlipidemia? Refill Rosuvastatin Calcium Tablet, 5 MG, [...] * T riglycerides 99 <150 - mg/dL * Kandis Rodney 03/12/2025 11:22:46 AM EDT >left message for return Kandis Ball 03/12/2025 12:00:10 PM EDT >I spoke with pt and reported results 4.?Breast cancer screening?Imaging: Mammogram* Ivon Durbin 03/10/2025 10:5 6:18 AM EDT > faxed to [facility] Scheduling 5.?Hormone disorder? Refill Estradiol Tablet, 1 [...] Codes: 8 5025 CBC WITH AUTO DIFF, 91574 VENIPUNCT, ROUTINE*, 1036F TOBACCO NON-USER, 3074F SYST BP LT 130 MM HG, 3078F DIAST BP < 80 MM HG * Follow Up: 3 Months * Images: Billing Information: * Visit Code: 21906 Office Visit, Est Pt., Level 4. * Procedure Codes: 81951 CBC WITH AUTO DIFF. 34095 VENIPUNCT, ROUTINE*. 1036F TOBACCO NON-USER. 3074F SYST BP LT 130 MM HG. 3078F DIAST BP < 80 MM HG. * Electronic signature of Holly Rodney APRN on 03/30/2025 at 07:53 AM EDT Sign off status: Pending * Provider: SHRUTI Olvera Date: 0 03/10/2025 Generated for Tamar bledsoe/Lb/eTshosmgeorge on: 0 03/30/2025 07:53 AM EDT History and Physical [...]
--- OUTSIDE RECORDS SUMMARY | 2025-03-30 07:52 | XMS_ITS | Clinical Summary ---
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
[address] [place] [address], [place] [phone] from Last 3 Months or Most Recently Relevant to Health Maintenance Insurance [employer]EE Care Teams Helpdesk Administrator Relationship Specialty Start Date End Date Sharita López PA [address] [place] [address] PCP - General Physician Knitting Machine Operator Helper 02/12/20
--- NOTE | 2025-03-30 07:53 | MM_ITS ---
PROCEDURE INFORMATION: Exam: MG Bilateral Screening 3D Mammography Exam date and time: 03/30/2025 7:59 AM Age: 54 years old Clinical indication: Screening examination TECHNIQUE: Imaging protocol: Bilateral Screening tomosynthesis and 2D mammography including computer-aided detection (CAD) when performed. COMPARISON: 1. MG MM DIG SCREENING MAMM BI W/CAD 03/27/2024 8:04 AM 2. MG MM DIG MAMM DX UNILAT LT CAD 06/30/2019 2:35 PM 3. MG MM DIG SCREENING MAMM BI W/CAD 05/27/2019 10:07 AM 4. US BREAST LT COMPLETE 06/30/2019 3:09 PM FINDINGS: MAMMOGRAPHY: Breast composition: There are scattered areas of fibroglandular density. Mass: No suspicious masses. Architectural distortion: No suspicious distortion. Calcifications: No suspicious calcifications. Asymmetric density: None. Skin thickening: None. Axillary adenopathy: None. IMPRESSION: No mammographic evidence of malignancy. Annual screening is recommended unless otherwise clinically indicated. ASSESSMENT: BI-RADS Category 1: Negative.
--- OUTSIDE RECORDS SUMMARY | 2025-03-30 07:53 | XMS_ITS | Patient Health Record ---
[facility] Organization [facility] Address [address] [place] [phone] Care Team Providers Care Sales Hunter Name Role Phone Peewee Rodneyine Primary Care Provider Sharita López Unavailable [phone] Allergies No Known Allergies Results Component Value Reference Range Notes Urinalysis - Inhouse Reviewed date:06/02/2024 02:55:34 PM Interpretation: Performing Lab: Notes/Report: Color/Clarity yellow/cloudy Leuk neg Nitrite neg Urobili 3.2 Protein neg pH 5.5 Blood neg Sp. Gr. 1.030 Ketone 1+ Bili neg Gluc neg P-TSH Reviewed date:06/09/2024 09:57:51 AM Interpretation:Normal 3.45 Performing Lab: Notes/Report: Test performed by [facility] [address] [place] [address] [place] [address] Corey Sifuentes MD, Brush Worker CLIA: [id number] TSH 3.45 0.43-5.25 mU/L P-Lipid Panel Reviewed date:06/09/2024 09:58:12 AM Interpretation:Normal Performing Lab: Notes/Report: Test performed by [facility] [address] [place] [address] [place] [address] Corey Sifuentes MD, Brush Worker CLIA: [id number] Cholesterol 171 <200 mg/dL Triglycerides 109 <150 [...] ATPIII guidelines LDL/HDL Ratio 1.4 <3.3 Ratio LDL Cholesterol Patient History Test Date: 07/31/2023 LDL Results: 170 Units: mg/dL % Change: - ------- Test Date: 06/04/2024 LDL Results: 88 Units: mg/dL % Change: -48% P-Comprehensive Metabolic Pa arturo (CMP) Reviewed date:06/09/2024 09:59:20 AM Interpretation:Normal Performing Lab: Notes/Report: Test performed by [facility] [address] [facility] , [address], [place] [address] Corey Sifuentes MD, Brush Worker CLIA: [id number] Sodium 142 135-145 mmol/L Potassium 4.3 3.5-5.3 [...] 15 Performing Lab: Notes/Report: Test performed by [facility], [address] , [address], [place] [address] Corey Sifuentes MD, Brush Worker CLIA: [id number] WBC 8.5 3.8-11.5 K/uL Red Blood Cell Count (RBC) 4.60 3.60-5.30 M/mm3 Hemoglobin (Hgb) 14.8 11.5-15.5 gm/dL Hematocrit (HCT) 43.5 35.2-46.4 % MCV 94.6 79.0-99.0 fL MCH 32.2 26.9-35.0 pg MCHC 34.0 30.4-34.8 g/dL RDW 42.6 38.6-53.8 fL Platelet Count 15 137-397 K/cumm Critical [facility], results confirmed. Neutrophils Automated 47.1 41.0-77.0 % [...] K/uL Absolute Immature Granulocyte 0.36 0.00-0.03 K/uL CBC Fingerstick (in house) Reviewed date:12/11/2024 08:22:52 [...] Interpretation: Performing Lab: Notes/Report: Test performed by [facility] [address] [place] [address] , [address], [place] [address] Corey Sifuentes MD, Brush Worker CLIA: [id number] Poikilocytosis Moderate Anisocytosis Slight Platelet Slide Review See Below PLT: Smear reviewed. No platelet clumps observed. Significantly Decreased CBC Venipuncture (in house) Reviewed date:03/10/2025 12:18:37 [...] Interpretation:normal Performing Lab: Notes/Report: Test performed by [facility] [address] [place] [address] [address], [place] [address] Corey Sifuentes MD, Brush Worker CLIA: [id number] Sodium 139 135-145 mmol/L Potassium 3.7 3.5-5.3 [...] 99 Performing Lab: Notes/Report: Test performed by [facility] [address] [place] [address] [address], [place] [address] Corey Sifuentes MD, Brush Worker CLIA: [id number] Cholesterol 178 <200 mg/dL Triglycerides 99 <150 [...] Results: 170 Units: mg/dL % Change: - ------- Test Date: 06/04/2024 LDL Results: 88 Units: mg/dL % Change: -48% ------- Test Date: 03/10/2025 LDL Results: 101 Units: mg/dL % Change: +14% H-UPHPLT Reviewed date:03/12/2025 12:01:41 PM Interpretation: Performing Lab: Notes/Report: [id number] TRANSFUSED PRODUCT: Pheresis Platelets COUNT: 1 H-Platelet Reviewed date:03/12/2025 12:01:18 PM Interpretation:14 Performing Lab: Notes/Report: PLT 14 142-424 K/mm3 CRITICAL RESULT Results called and read back/verified to: Monie COCHRAN on 03/10/25 at 1246 By Lashawn Cage H-ABO/RH Type Reviewed date:03/12/2025 12:01:30 PM Interpretation: Performing Lab: Notes/Report: Special Requirements: None FFP/Platelet Product Order Reason: TTP Product order account changed to specimen [id number] by ANGEL at 03/11/25 0911. BT A Positive Reason For Referral No Information Medications Medication [...] 90 days Active Vitamin D3 1.25 MG (98781 UT) 1 cap(s) orally once a day; Duration: 30 day(s) Active Multivitamin 1 TAB ONCE A DAY Active Biotin 5 MG 1 tablet Orally Once a day Active Vitamin C 500 MG as directed Orally Active Vitamin B12 100 MCG as directed Orally Active Immunizations Vaccine Route Administration Date Status Comme nts Twinrix-Hep A and Hep B Unknown 07/26/2018 Administered Twinrix-Hep A and Hep B Unknown 08/26/2018 Administered Twinrix-Hep A and Hep B Unknown 02/11/2019 Administered COVID 19 Minor Unknown 11/12/2020 Administered Problems Problem Type SNOMED Code ICD Code Onset Dates Problem Status W/U Status Risk Notes Problem Sinusitis (88018930) Sinusitis (J32.9) Active confirmed Problem Hyperlipidemia (99994292) Hyperlipidemia (E78.5) Active confirmed Problem Menorrhagia (817285192) Menorrhagia (N92.0) Active confirmed Problem Anemia (698264241) Anemia (D64.9) Active confir med Problem Essential hypertension (93229062) Essential hypertension (I10) Active confirmed Problem Mixed anxiety and depressive disorder (220799864) Depression with anxiety (F41.8) Active confirmed Problem Thrombocytopenia (055849897) Thrombocytopenia (D69.6) Active confirmed Vital Signs Heart Rate 70 /min 03/10/2025 Blood pressure diastolic 76 mm Hg 03/10/2025 Height 60.50 in 03/10/2025 Blood pressure systolic 122 mm Hg 03/10/2025 Weight 119 lbs 03/10/2025 BMI 22.86 kg/m2 03/10/2025 Encounters Encounter Location Date Provider Diagnosis [facility] [address] [facility] [address] [place] [id number] 06/02/2024 Kandisgerman Rodney Ear pain, right H92. 01 ; Cystitis without hematuria N30.90 ; Hyperlipidemia E78.5 and Breast pain N64.4 [facility] [address] [facility] [address] [place] [id number] 06/04/2024 Kandisgerman Rodney Essential hypertensi on I10 ; Hyperlipidemia E78.5 ; Depression with anxiety F41.8 and Anemia D64.9 [facility] [address] [facility] [address] [place] [id number] 12/10/2024 Sharita López Acute pharyngitis du e to other specified organisms J02.8 ; Other specified bacterial agents as the cause of diseases classified elsewhere B96.89 ; Thrombocytopenia D69.6 and BMI 23.0-23.9, adult Z68.23 [facility] [address] [facility] [address] [place] [id number] 03/10/2025 Kandis Ronel Thrombocytopenia D69 .6 ; Essential hypertension I10 ; Hyperlipidemia E78.5 ; Depression with anxiety F41.8 ; Breast cancer screening Z12.39 ; Hormone disorder E34.9 and Encounter for weight loss counseling Z71.3 [facility] [address] [place] [facility] [address] [place], [place] [id number] 06/05/2024 Sharita Maribel [facility] [address] [place] [facility] [address] [place], [place] [id number] 12/16/2024 Sharita Maribel [facility] [address] [place] [facility] [address] [place] [id number] 02/18/2025 [facility]is Rodney [facility] [address] [facility] [address] [place], [place] [id number] 03/17/2025 Kandis Rodney Assessments Encounter Date Diagnosis (ICD Code) Assessment Notes Treatment Notes Treatment Clinical Notes Section Notes 12/10/2024 Other specified bacterial agents as the cause of diseases classified elsewhere (ICD-10 - B96.89) 12/10/2024 Acute pharyngitis due to other specified organisms (ICD-10 - J02.8) 03/10/2025 Essential hypertension (ICD-10 - I10) 03/10/2025 Thrombocytopenia (ICD-10 - D69.6) to have plt infusion with office visit plat # of 8; sent to infusion clinic; to have platlets tomorrow and she will have infusion then; discussed with establishing with Hematology, Dr. Wallace, at [facility]; she will further discuss with 06/02/2024 Ear pain, right (ICD-10 - H92.01) take med with food will restart Flonase; reviewed how to use; OTC antihistamine 06/02/2024 Cystitis without hematuria (ICD-10 - N30.90) improve water intake; she drinks minimal caffeine; suggested cranberry juice or pills daily 06/04/2024 Essential hypertension (ICD-10 - I10) 06/02/2024 Hyperlipidemia (ICD-10 - E78.5) will RTC fasting for LIPIDS 06/04/2024 Hyperlipidemia (ICD-10 - E78.5) 03/10/2025 Hyperlipidemia (ICD-10 - E78.5) 12/10/2024 Thrombocytopenia (ICD-10 - D69.6) Gave number to contact Dr. Silverman's office as referral has already been made. 12/10/2024 BMI 23.0-23.9, adult (ICD-10 - Z68.23) 03/10/2025 Depression with anxiety (ICD-10 - F41.8) 06/02/2024 Breast pain (ICD-10 - N64.4) Estradiol has really helped her hot flushes and discomfort with SI; will try decrease to 0.5 mg daily 06/04/2024 Depression with anxiety (ICD-10 - F41.8) 03/10/2025 Breast cancer screening (ICD-10 - Z12.39) 03/10/2025 Hormone disorder (ICD-10 - E34.9) discussed possibly weaning; she has had minimal hot flushes and they are less since the weight loss; needs pap smear as well 06/04/2024 Anemia (ICD-10 - D64.9) 03/10/2025 Encounter for weight loss counseling (ICD-10 - Z71.3) she obtains med from an ouside source 06/02/2024 Other will RTC for fasting labs to include CBC, LIPIDS, CMP, TSH Plan Of Treatment Pending Test Test Name Order Date Mammogram 03/10/2025 Insurance Providers Payer Name Payer Address Payer Phone Subscriber Number Group Number Insured Name Patient Relationship to Insured Coverage Start Date Coverage End Date [employer] [address] [place] [address] [id number] [place] [employer] Self - patient is the insured Medications Administered Medication Instructions Date of Administration Dosage Notes Dexamethasone 07/10/2018 1 mL Medical (General) History Medical History History ICD Code duodenitis gastritis uterine fibroids celiac disease thrombocytopenia Surgical History Surgery Date(Month/Year) tonsilectomy 1990 1999
--- OUTSIDE RECORDS SUMMARY | 2025-03-30 07:53 | XMS_ITS | Encounter Summary ---
Author Organization [facility] Address [address] [place] [address] Care Team Providers Care Log Truck Driver Name Role Phone Sharita López Primary Care Provider [phone] Encounter Details Date Type Department Care Team (Late st Contact Info) Description 12/29/2011 Conversion Encounter [facility] HISTORICAL CONV [address] [place] [address] Interface, See Report Social History [...] Naveen Owens M.D. ' Rima Elizabeth APRN [facility], [address] [place] [address] [facility] OFFICE NOTE CORET[place] LEROY : 1970 DATE [...] plan. Naveen Owens M.D.* FB/rxalw Doc. ID [id number] Rev. #0 cc: Dr. Espinoza [place], [place] Page 3 of 3 Page 1 of 3 Authenticated by NAVEEN OWENS MD On 01/16/2012 10:35:19 AM documented in this encounter Plan of Treatment Not on file documented as of this encounter Visit Diagnoses Not on filedocumented in this encounter Care Teams Log Truck Driver Relationship Specialty Start Date End Date Sharita López PA [address] [facility] [address] [place] [address] PCP - General Physician Community Support Professional 02/12/20 documented as of this encounter
== END 2025-03-30 23:59 | disposition home or self-care (01) ==
LOC: RAD 07:50
PROVIDERS: PCP Physician Assistant; Visit Provider Nurse Practitioner Family
DX: Z12.31 Encounter for screening mammogram for malignant neoplasm of breast (principal); R92.323 Mammographic fibroglandular density, bilateral breasts
CPT/HCPCS: 77063; 77067